=== PATIENT | male | born 1975 | race Caucasian/White ===

== ENCOUNTER 2020-02-13 10:17 | Outpatient (REF) | payer OTHER, SELFPAY ==
[2020-02-13 11:18] LABS: MANUAL DIFF FLAG NO
[2020-02-13 11:29] LABS: Basophils Percent Auto 0.3 % (0-2); Eosinophils Absolute Auto 0.1 X10*3/uL (0.0-0.4); Eosinophils Percent Auto 1.2 % (0-4); Hematocrit 46.1 % (42-52); Hemoglobin 15.3 g/dl (14.0-18.0); Imm Gran Abs Auto 0.02 X10*3/uL (0.00-0.03); Imm Gran Pct Auto 0.3 % (0.0-0.4); Lymphocytes Absolute Auto 1.7 X10*3/uL (1.2-4.9); Mean Corpuscular HGB Conc 33.2 g/dl (31.0-36.0); Mean Corpuscular Volume 84.4 fL (80-98); Mean Platelet Volume 11.3 fL (9.4-12.4); Monocytes Absolute Auto 0.5 X10*3/uL (0.1-1.2); Monocytes Percent Auto 7.4 % (2-11); Neutrophils Absolute Auto 4.3 X10*3/uL (2.0-8.3); Neutrophils Percent Auto 65.8 % (45-73); Platelet Count 232 X10*3/uL (160-400); Red Blood Count 5.46 X10*6/uL (4.60-5.80); Red Cell Distribution Width 12.1 % (11.0-16.0); White Blood Count 6.6 X10*3/uL (4.8-10.8)
[2020-02-13 12:12] LABS: Alanine Aminotransferase 29 U/L (0-40); Albumin Level 4.5 g/dL (3.5-5.0); Alkaline Phosphatase 79 U/L (39-117); Anion Gap 12 (12-20); Aspartate Amino Transferase 28 U/L (5-37); Bilirubin Total 0.8 mg/dL (0.0-1.0); Blood Urea Nitrogen 18 mg/dL (9-16); Calcium 9.4 mg/dL (8.4-10.2); Carbon Dioxide 29 mmol/L (22-29); Chloride 103 mmol/L (96-108); Cholesterol 210 mg/dL; Estimated Glomerular Filt Rate > 60; Glucose Fasting 98 mg/dL (60-99); HDL Cholesterol 57 mg/dL; LDL Cholesterol Calculated 140 mg/dl; Potassium 4.9 mmol/l (3.3-5.1); Sodium 139 mmol/L (135-145); Total Protein 8.1 g/dL (6.5-8.0); Triglycerides 69 mg/dL
== END 2020-02-13 10:18 | disposition home or self-care (01) ==
LOC: HO.HMGCLDS 10:17
PROVIDERS: PCP Internal Medicine; Visit Provider Internal Medicine
DX: E66.9 Obesity, unspecified (principal); Z00.01 Encounter for general adult medical examination with abnormal findings
CPT/HCPCS: 36415; 80053; 80061; 85025

== ENCOUNTER 2020-10-30 13:27 | Outpatient (REF) | payer OTHER, SELFPAY ==
[2020-11-01 15:12] LABS: TS Negative Control Passed; TS Panel A 0; TS Panel B 0; TS Positive Control Passed; TSpotTB Negative (Negative)
== END 2020-10-30 13:28 | disposition home or self-care (01) ==
LOC: HO.HMGCLDS 13:27
PROVIDERS: PCP Internal Medicine; Visit Provider Internal Medicine
DX: Z11.1 Encounter for screening for respiratory tuberculosis (principal)
CPT/HCPCS: 36415; 86481

== ENCOUNTER 2023-05-09 08:26 | Outpatient (AMB) | payer OTHER, SELFPAY ==
--- NOTE | 2023-05-09 08:29 | A.OFFPC_ITS ---
Vital Signs 05/09/23 08:34 Height 5 ft 11 in Weight 271 lb BMI 37.8 BP 110/70 Blood Pressure Location Lt brachial Position Sitting Pulse 58 Pulse Source Pulse Oximeter Pulse Oximetry (%) 96 Oxygen Delivery Method Room Air Intake Visit Reasons: Physical exam Intake Note: Pt is here today for his PE Allergies No Known Allergies Allergy (Verified 05/09/23 08:47) Medication List - Last Reconciled 05/09/23 by Yolanda Barragan MD albuterol sulfate 90 mcg/actuation (ProAir HFA) 1 inh inhalation QID PRN glucosamine HCl 1,500 mg PO DAILY multivitamin 1 tab PO DAILY omega 5-ojz-bgn-fish oil 300-1,000 mg (Fish Oil) 1 cap PO DAILY Tobacco use date assessed: 05/09/23 HPI Physical exam HPI Details 47-year-old male with history of obesity status post gastric bypass, has reactive airway disease, here today for his physical exam. Has history of dyslipidemia currently not on any medication, has been following a low- cholesterol diet, and goes to the gym for exercise. Overdue for his colon cancer screening. Patient also states that he enrolled in a [facility] in [place] to get semaglutide injections to help with weight loss. He started using it January 2023 for 8 week, and has lost about 20 lb . Patient currently off semaglutide now and has been trying to maintain a healthy diet and getting regular exercise. He declines getting any COVID booster or flu vaccine but would like to get an updated Tdap. Only complaint he has right now is difficulty initiating sleep during the week days, has no problems during the weekends. Has started taking [employer] Night Shred , which she got online and it has been helping him sleep better at night, does not wake up groggy or drowsy in the morning. He also has been noticing some decrease in libido and getting more tired than usual. He does work 2 jobs 1 thet starts at 04:30 to 14:30 and then from 3-9 p.m. [facility] Medical History (Updated 05/09/23 @ 09:10 by Yolanda Barragan MD) Hyperlipidemia History of COVID-19 Obesity (BMI 35.0-39.9 without comorbidity) History of appendicitis Tinea versicolor Reactive airway disease Surgical History History of appendectomy Gastric bypass status for obesity Family History Mother Diabetes mellitus HTN (hypertension) Depression Substance use disorder Mental health disorder Maternal Aunt Diabetes mellitus Maternal Uncle Diabetes mellitus Father Mental health disorder Social History Alcohol intake: current Alcohol intake frequency: holidays/special occasions only Patient Tobacco Use Status: Never used Tobacco e-Cigarette/Vaping Use: Never Used Questionnaire PHQ-9 Over the last 2 weeks, how often have you been bothered by any of the following problems? 1. Little interest or pleasure in doing things: not at all 2. Feeling down, depressed, or hopeless: not at all 3. Trouble falling or staying asleep, or sleeping too much: more than half the days 4. Feeling tired or having little energy: several days 5. Poor appetite or overeating: not at all 6. Feeling bad about yourself - or that you are a failure or have let yourself or your family down: not at all 7. Trouble concentrating on things, such as reading the newspaper or watching television: several days 8. Moving or speaking so slowly that other people could have noticed. Or the opposite - being so fidgety or restless that you have been moving around a lot more than usual: not at all 9. Thoughts that you would be better off or of hurting yourself in some way: not at all Total score: 4 Depression Screening Interpretation: Negative Depression Screening Done: Yes 06904 - PHQ-9 Billing: Yes Source: Developed by Drs. Yasir Fraser, Niya Murguia, Hiren Aly and colleagues, with an educational candida from [employer]. Thrive Questionnaire Date Thrive assessed: 05/09/23 I am a: Patient What is your living situation today?: I have a steady place to live Within the past 12 months, did the food you bought not last and you didn't have the money to get more?: Never true Within the past 12 months, did you worry whether your food would run out before you got money to buy more?: Never true Do you have trouble paying for medicines?: No Do you have trouble getting transportation to medical appointments?: No Do you have trouble paying your heating and electricity bill?: No Do you have trouble taking care of your child, family member or friend?: No Do you have trouble with day-to-day activities such as bathing, preparing meals, shopping, managing finances, etc.?: No Are you currently unemployed and looking for a job?: No Are you interested in more education?: No THRIVE Score: 0 AUDIT C Alcohol Use Questionnaire (AUDIT-C) 1. How often do you have a drink containing alcohol?: Monthly or less 2. How many drinks containing alcohol do you have on a typical day when you are drinking?: 1 or 2 3. How often do you have six or more drinks on one occasion?: Never Total Score: 1 JOSE-7 AMB Questionnaire JOSE-7 Date JOSE - 7 assessed: 05/09/23 Feeling nervous, anxious, or on edge: 1 = Several days Not being able to stop or control worryin = Not at all Worrying too much about different things: 0 = Not at all Trouble relaxin = More than half the days Being so restless that it is hard to sit still: 2 = More than half the days Becoming easily annoyed or irritable: 0 = Not at all Feeling afraid as if something awful might happen: 0 = Not at all Total JOSE-7 score (0-4 normal; 5-9 mild; 10-14 moderate; 15-21 severe): 5 Source: Developed by Drs. Yasir Fraser, Niya Murguia, Hiren Aly and colleagues, with an educational candida from [employer]. JOSE-7 Assessment Billing JOSE-7 Assessment Tool: JOSE-7 Assessment 19028 Review of Systems Const Reports as per HPI, Denies body aches, Reports fatigue, Denies fever(s), Denies headache(s), Reports snoring and Denies weakness Eyes Details: Overdue for his eye exam Reports blurry vision ENT Denies dizziness, Denies headache(s), Denies nasal congestion, Denies nasal discharge and Denies sore throat Card Denies chest pain, Denies lightheadedness, Denies palpitations, Denies dyspnea and Denies dyspnea on exertion Resp Denies chest congestion, Denies cough, Denies dyspnea, Denies dyspnea on exertion, Reports snoring and Reports wheezing (Occasional, uses albuterol as needed) GI Denies abdominal pain, Denies change in bowel habits and Denies heartburn Reports change in libido, Denies difficulty with ejaculations, Denies erectile dysfunction, Denies genital pain, Denies dysuria, Denies nocturia, Denies penile discharge, Denies scrotal swelling, Denies testicular mass, Denies testicular pain, Denies urinary frequency and Denies urinary urgency Musc Denies back pain, Denies myalgias and Denies joint swelling Skin/Breast Reports as per HPI Neuro Denies dizziness, Denies headache(s) and Denies weakness Psych Denies anxiety, Reports change in libido and Denies depression Endo Reports change in libido, Reports fatigue, Denies polydipsia, Denies polyuria and Denies palpitations Emir/Lymph Denies easy bruising Aller/Immun Denies seasonal rhinorrhea and Reports wheezing (Occasional, uses albuterol as needed) Physical exam (Primary Care) Vital Signs: Last Vital Signs Pulse 58 05/09/23 08:34 BP 110/70 05/09/23 08:34 Pulse Ox 96 05/09/23 08:34 Oxygen Delivery Method Room Air 05/09/23 08:34 BMI result Body Mass Index 37.8 Tobacco/Smoking Status: Tobacco use Status Tobacco use date assessed 05/09/23 05/09/23 08:30 Patient Tobacco Use Status Never used Tobacco 05/09/23 08:40 e-Cigarette/Vaping Use Never Used 05/09/23 08:40 PHQ-9: PHQ-9 Score PHQ-9: Total score 4 05/09/23 08:59 Depression Screening Interpretation: Negative Thrive Assessment: Date of Thrive Assessment Date Thrive assessed 05/09/23 05/09/23 08:47 Const General: no acute distress and alert Orientation/consciousness: patient oriented x3 HENMT Head: Yes normocephalic and Yes atraumatic Ears: external ears normal, TM's normal bilaterally and EAC's normal General nose exam: Normal external nose present and No nasal discharge present Face and sinus: Yes face symmetric Mouth: Normal oral and palatal mucosa present, oropharynx normal and moist mucous membranes Eyes General: appearance normal, both eyes and all related structures Eyelids: Yes eyelids normal Conjunctivae: conjunctivae normal Sclerae: sclerae normal Pupils: Equal, round and reactive pupils present EOM: EOMs intact bilaterally Neck Neck: Yes full ROM, Yes no lymphadenopathy and Yes supple Thyroid: Thyroid normal Chest Chest palpation & inspection: normal inspection of the chest Resp Effort & Inspection: normal respiratory effort and able to speak in complete sentences Auscultation: clear to auscultation bilaterally Cardio Rate: regular rate Rhythm: regular rhythm Heart sounds: S1 normal heart sound present and S2 normal heart sound present GI Palpation (GI): Soft to palpation, nontender, no guarding and no masses Auscultation: normal bowel sounds General: Yes no CVA tenderness Male General Exam: Yes normal external exam and No hernia Penis: normal penis and uncircumcised Testes: no testicular mass Back/Spine/Pelvis Back: no CVA tenderness and No back tenderness Skin General skin exam: no rashes or lesions noted Neuro General: patient oriented x3, gait normal, moves all extremities, Normal light touch and pain sensation, no focal motor deficits and CN's II-XI intact bilaterally Cranial nerves: Yes Equal, round and reactive pupils present Cognition (Neuro): normal cognition Gait exam (Neuro): Normal gait present Motor exam (neuro): 5/5 motor strength present throughout Extrem General: Yes normal to inspection, Yes full ROM, Yes no joint enlargement, Yes no pedal edema and Yes normal gait Psych Appearance: grossly normal and well kempt Mental Status: mental status grossly normal Speech and movement: Normal speech and movement present Affect: normal affect Attitude: cooperative Thought process: Normal thought process present Thought content: Normal thought content present Immunizations Boostrix Tdap 2.5 Lf unit-8 mcg-5 Lf/0.5 mL intramuscular syringe Performing Provider: Yolanda Barragan MD Performing Location: [facility] Administered by: Alexia Fernandez CMA on 05/09/23 09:19 Dose Route Admin Location Dispensed Lot Number Expiration Date NDC Web Site Specialist 0.5 mL IM Left Deltoid 0.5 mL [id number] 07/06/25 [id number] [employer] VIS Given Date VIS Provided VIS Publication Date 05/09/23 Single Vaccine 20 Eligibility Eligibility Date Funding Source Not [facility] Eligible 05/09/23 Private Assessment and Plan Assessment & Plan (1) Annual visit for general adult medical examination with abnormal findings: Code(s): Z00.01 - Encounter for general adult medical examination with abnormal findings Plan: Will check appropriate labs. Recommended dental visit every 6 months and regular eye exams, at least every 2 years patient states that he will schedule appointment with [facility]. Take adequate calcium in diet and vitamin-D 3 at 2000 IU per cap once a day, in addition to weight-bearing exercises to help maintain good muscle tone and weight control. Instructed to do self-testicular exam to check for any mass patient declined getting COVID booster or flu vaccine, Tdap given today. Will schedule him for a screening colonoscopy at [facility] with GI clean (2) Colon cancer screening: Code(s): Z12.11 - Encounter for screening for malignant neoplasm of colon Plan: Referred to [facility] for colon cancer screen (3) Reactive airway disease: Code(s): J45.909 - Unspecified asthma, uncomplicated Qualifiers: Asthma complication type: uncomplicated Asthma persistence: intermittent Asthma severity: mild Qualified Code(s): J45.20 - Mild intermittent asthma, uncomplicated Plan: Uses albuterol as needed for episodes of wheezing and bronchospasm (4) Obesity (BMI 35.0-39.9 without comorbidity): Code(s): E66.9 - Obesity, unspecified Plan: Has lost 20 lb using semaglutide injection for 8 weeks provided by [email or web address] in [place]. Recommended focusing on improving health instead of dieting. Continue with Mediterranean diet that in a healthy diet that helps, limit food high in fat, sugar, and calories. Eat slowly, pay attention to portion sizes, plan your meals ahead of time, continue going to the gym for regular physical activity, at least 150 minutes of moderate intensity exercise, or 90 minutes per week of vigorous exercise. Keeping a food diary, tracking what you eat and your physical activity can help assess what improvements you can make. There are many health problems associated with being overweight/obese, so it is important to improve your diet and exercise. (5) Fatigue: Code(s): R53.83 - Other fatigue Qualifiers: Fatigue type: chronic, unspecified Qualified Code(s): R53.82 - Chronic fatigue, unspecified Plan: Will check vitamin-D, B12 level, CBC and testosterone level (6) Loss of libido: Code(s): R68.82 - Decreased libido Plan: Will check testosterone level Orders: Orders Complete Blood Count Auto Diff Today E66.9 - Obesity, unspecified, J45.909 - Unspecified asthma, uncomplicated, R53.83 - Other fatigue, R68.82 - Decreased libido, Z00.01 - Encounter for general adult medical examination with abnormal findings Lipid Panel Today E66.9 - Obesity, unspecified, E78.5 - Hyperlipidemia, unspecified, J45.909 - Unspecified asthma, uncomplicated, R53.83 - Other fatigue, R68.82 - Decreased libido, Z00.01 - Encounter for general adult medical examination with abnormal findings Vitamin D 25-OH Total Today E66.9 - Obesity, unspecified, J45.909 - Unspecified asthma, uncomplicated, R53.83 - Other fatigue, R68.82 - Decreased libido, Z00.01 - Encounter for general adult medical examination with abnormal findings TDaP Immunization Today Z23 - Encounter for immunization Basic Metabolic Panel Fasting Today E66.9 - Obesity, unspecified, J45.909 - Unspecified asthma, uncomplicated, R53.83 - Other fatigue, R68.82 - Decreased libido, Z00.01 - Encounter for general adult medical examination with abnormal findings Alanine Aminotransferase Today E66.9 - Obesity, unspecified, J45.909 - Unspecified asthma, uncomplicated, R53.83 - Other fatigue, R68.82 - Decreased libido, Z00.01 - Encounter for general adult medical examination with abnormal findings Aspartate Amino Transferase Today E66.9 - Obesity, unspecified, J45.909 - Unspecified asthma, uncomplicated, R53.83 - Other fatigue, R68.82 - Decreased libido, Z00.01 - Encounter for general adult medical examination with abnormal findings Testosterone, Free/Total Today E66.9 - Obesity, unspecified, J45.909 - Unspecified asthma, uncomplicated, R53.83 - Other fatigue, R68.82 - Decreased libido, Z00.01 - Encounter for general adult medical examination with abnormal findings Vitamin B12 and Folate Today E66.9 - Obesity, unspecified, J45.909 - Unspecified asthma, uncomplicated, R53.83 - Other fatigue, R68.82 - Decreased libido, Z00.01 - Encounter for general adult medical examination with abnormal findings Referrals Gastroenterology Referral Z12.11 - Encounter for screening for malignant neoplasm of colon Coding Level of Care Code Est Pt Prev Care 40-64y(85145) Diagnoses Annual visit for general adult medical examination with abnormal findings Z00.01 Colon cancer screening Z12.11 Mild intermittent reactive airway disease without complication J45.20 Asthma complication type: uncomplicated Asthma persistence: intermittent Asthma severity: mild Obesity (BMI 35.0-39.9 without comorbidity) E66.9 Chronic fatigue R53.82 Fatigue type: chronic, unspecified Loss of libido R68.82 Additional Codes JOSE-7 Assessment Billing - JOSE-7 Assessment Tool: JOSE-7 Assessment 67397 ([id number])
[2023-05-09 08:34] VITALS: BP 110/70; PULSE 58; O2SAT 96; BMI 37.8
== END 2023-05-09 09:19 | disposition home or self-care (01) ==
PROVIDERS: PCP Internal Medicine; Visit Provider Internal Medicine
DX: Z00.00 Encounter for general adult medical examination without abnormal findings (principal); E66.9 Obesity, unspecified; Z68.37 Body mass index [BMI] 37.0-37.9, adult; Z23 Encounter for immunization; Z12.11 Encounter for screening for malignant neoplasm of colon; J45.20 Mild intermittent asthma, uncomplicated; R53.82 Chronic fatigue, unspecified; R68.82 Decreased libido
CPT/HCPCS: 90471; 90715; 99396

== ENCOUNTER 2023-05-13 07:16 | Outpatient (REF) | payer OTHER, SELFPAY ==
[2023-05-13 11:47] LABS: MANUAL DIFF FLAG NO
[2023-05-13 11:56] LABS: Basophils Percent Auto 0.6 % (0-2); Eosinophils Absolute Auto 0.2 X10*3/uL (0.0-0.4); Eosinophils Percent Auto 4.1 % (0-4); Hematocrit 43.5 % (42.0-52.0); Hemoglobin 14.5 g/dl (14.0-18.0); Imm Gran Abs Auto 0.02 X10*3/uL (0.00-0.03); Imm Gran Pct Auto 0.4 % (0.0-0.4); Lymphocytes Absolute Auto 1.5 X10*3/uL (1.2-4.9); Lymphocytes Percent Auto 29.5 % (20-40); Mean Corpuscular HGB Conc 33.3 g/dl (31.0-36.0); Mean Corpuscular Hemoglobin 27.9 pg (27.0-33.0); Mean Corpuscular Volume 83.8 fL (80.0-98.0); Mean Platelet Volume 11.6 fL (9.4-12.4); Monocytes Absolute Auto 0.4 X10*3/uL (0.1-1.2); Monocytes Percent Auto 6.9 % (2-11); Neutrophils Percent Auto 58.5 % (45-73); Platelet Count 215 X10*3/uL (160-400); Red Blood Count 5.19 X10*6/uL (4.60-5.80); Red Cell Distribution Width 12.6 % (11.0-16.0); White Blood Count 5.1 X10*3/uL (4.8-10.8)
[2023-05-13 12:32] LABS: Alanine Aminotransferase 27 U/L (0-40); Anion Gap 11 (12-20); Aspartate Amino Transferase 32 U/L (5-37); Blood Urea Nitrogen 17 mg/dL (9-16); Calcium 9.3 mg/dL (8.4-10.2); Carbon Dioxide 25 mmol/L (22-29); Chloride 107 mmol/L (96-108); Cholesterol 184 mg/dL (<200); Estimated Glomerular Filt Rate > 60; Glucose Fasting 89 mg/dL (60-99); HDL Cholesterol 49 mg/dL (>40); LDL Cholesterol Calculated 122 mg/dL (<100); Sodium 139 mmol/L (135-145); Triglycerides 66 mg/dL (<150)
[2023-05-13 12:36] LABS: Vitamin D 25-OH Total 34.5 ng/mL (>30)
[2023-05-13 12:49] LABS: Folate 9.8 ng/mL (> or = 4.0); Vitamin B12 1213 pg/mL (200-900)
[2023-05-18 15:38] LABS: Testosterone, Free 64.4 pg/mL (35.0-155.0); Testosterone, Total 354 ng/dL (250-1100)
== END 2023-05-13 07:17 | disposition home or self-care (01) ==
LOC: HO.HMGCLDS 07:16
PROVIDERS: PCP Internal Medicine; Visit Provider Internal Medicine
DX: Z00.01 Encounter for general adult medical examination with abnormal findings (principal); R53.83 Other fatigue; R68.82 Decreased libido; J45.909 Unspecified asthma, uncomplicated; E66.9 Obesity, unspecified; E78.5 Hyperlipidemia, unspecified
CPT/HCPCS: 36415; 80048; 80061; 82306; 82607; 82746; 84402; 84403; 84450; 84460; 85025

== ENCOUNTER 2023-07-11 12:53 | Outpatient (AMB) | payer OTHER, SELFPAY ==
[2023-07-11 12:55] VITALS: BP 116/63; PULSE 67; BMI 37.3
--- NOTE | 2023-07-11 12:55 | A.OFFVIS_ITS ---
Vital Signs 07/11/23 12:55 Height 5 ft 11 in Weight 267 lb 3.204 oz BMI 37.3 BP 116/63 Blood Pressure Location Rt brachial Position Sitting Pulse 67 Intake Visit Reasons: Colonoscopy Screening Intake Note: New patient in office today for colonoscopy screening. CC: Patient denies having any GI concerns or symptoms today. Contact Center Director Required: No Allergies No Known Allergies Allergy (Verified 07/11/23 12:58) HPI HPI Colonoscopy Screening: Details: 47 year old? male with past medical history of hyperlipidemia, obesity Monday, active airway disease is here today for pre colonoscopy screening.? Patient was sent to us by his PCP.? This is his first colonoscopy screening.? Patient denies any gastrointestinal symptoms in the past or at present.? Patient was on Ozempic for weight loss, however had to stop because was feeling nauseous. Currently not taking any medications for weight loss. Denies any personal or family history of gastrointestinal disease, colon polyps, or CRC.? Denies history of difficulty with sedation or anesthesia in the past.? Negative for history of sleep apnea.? Denies any history of cardiac, renal, pulmonary, or hepatic disease.?? No history of infectious? diseases like hepatitis A, B, C, HIV or tuberculosis.? Patient is not on any anticoagulation therapy. [facility] Medical History Hyperlipidemia History of COVID-19 Obesity (BMI 35.0-39.9 without comorbidity) History of appendicitis Tinea versicolor Reactive airway disease Surgical History History of appendectomy Gastric bypass status for obesity Family History Mother Diabetes mellitus HTN (hypertension) Depression Substance use disorder Mental health disorder Maternal Aunt Diabetes mellitus Maternal Uncle Diabetes mellitus Father Mental health disorder Social History Alcohol intake: current Alcohol intake frequency: holidays/special occasions only Patient Tobacco Use Status: Never used Tobacco e-Cigarette/Vaping Use: Never Used Review of Systems Const Denies weight gain and Denies weight loss ENT Reports no additional complaints, Denies dysphagia and Denies odynophagia Card Reports no additional complaints Resp Reports no additional complaints GI Denies abdominal pain, Denies belching, Denies melena, Denies bloating, Denies change in bowel habits, Denies dysphagia, Denies excessive flatus, Denies dys pepsia, Denies heartburn, Denies diarrhea, Denies loose stools, Denies nausea, Denies odynophagia and Denies vomiting Reports no additional complaints Musc Reports no additional complaints Neuro Reports no additional complaints Psych Reports no additional complaints Endo Reports no additional complaints Physical Exam Vital Signs: Last Vital Signs Pulse 67 07/11/23 12:55 BP 116/63 07/11/23 12:55 BMI result Body Mass Index 37.3 Const General: healthy appearing and no acute distress Nutritional Appearance: obese Orientation/consciousness: patient oriented x3 Resp Effort & Inspection: normal respiratory effort, able to speak in complete sentences, no tracheal deviation and symmetric chest movement Auscultation: clear to auscultation bilaterally Cardio Rate: regular rate GI Inspection: Yes normal to inspection, No distended and Yes obesity Palpation (GI): Soft to palpation, not firm, nontender and No hepatosplenomegaly present Auscultation: normal bowel sounds General: Yes no CVA tenderness Back/Spine/Pelvis Back: no CVA tenderness Skin General skin exam: elasticity normal, turgor normal and dry skin Neuro General: patient oriented x3 Psych Appearance: grossly normal Mental Status: mental status grossly normal Assessment & Plan Assessment & Plan (1) Colon cancer screening: Code(s): Z12.11 - Encounter for screening for malignant neoplasm of colon Plan Patient denies any GI, cardiac or respiratory symptoms. ?Denies any issues with anesthesia in the past.? Denies any history of sleep apnea.? No history infectious diseases in the past or present.? Not on any anticoagulation therapy.? No family or personal history of colon cancer or polyps.? Patient denies melena, hematochezia, unintentional weight loss or ribbon like stools.? Discussed at length the pre-procedure,? prep, diet & medications as well as what to expect prior, during and after the procedure.?? Stressed the importance of good bowel prep. ?Recommended the use of Vaseline or Calmoseptine OTC & baby wipes with bowel movements to promote comfort.? ?Patient verbalizes understanding and agrees to plan of care.? He was given the opportunity to ask questions and all questions answered.? We will see him after the procedure.? Medications: New polyethylene glycol 3350 (Miralax) As directed by gastroenterology department at [facility] 238 grams PO ONCE 238 grams 0RF Z12.11 - Encounter for screening for malignant neoplasm of colon bisacodyl (Dulcolax (bisacodyl)) take 4 tabs at noon the day before your colonoscopy 20 mg (4 x 5 mg) PO ONCE 1 day 4 tabs 0RF Z12.11 - Encounter for screening for malignant neoplasm of colon Coding Level of Care Code New Pt Level 3 (18074) Diagnoses Colon cancer screening Z12.11 Time Spent (min) 40 Comment 30 minutes spent with patient and additional 10 minutes spent reviewing his re cords
== END 2023-07-11 13:54 | disposition home or self-care (01) ==
PROVIDERS: PCP Internal Medicine; Visit Provider Nurse Practitioner Family
DX: Z12.11 Encounter for screening for malignant neoplasm of colon (principal); Z01.818 Encounter for other preprocedural examination
CPT/HCPCS: 99203

== ENCOUNTER → 2023-07-11 12:53 | Outpatient (BNVA) | payer OTHER, SELFPAY | PROVIDERS: PCP Internal Medicine; Visit Provider Nurse Practitioner Family ==

== ENCOUNTER 2023-12-22 08:50 | Day surgery (SDC) | payer OTHER, SELFPAY ==
[2023-12-20 11:15] VITALS: BMI 37.2
--- OUTSIDE RECORDS SUMMARY | 2023-12-22 08:53 | XMS_ITS ---
Author Organization [facility] Address [address] [place] [address] Care Team Providers Care Personnel Training Officer Name Role Phone PAOLA LAND Unavailable [phone] Encounters Encounter Location Date Provider Diagnosis [facility] [address] [address] 06/19/2023 PAOLA LAND PLAN OF TREATMENT No Information Progress Notes * Frantz GOMEZDOB:1975 (48 yo M)Acc No.[id number]:06/19/2023 Patient:??Frantz GOMEZ Provider:??PAOLA LAND NP :1975?Age:47 Y?Sex:Ma le Date:06/19/2023 Address:[address] [place], [place] [address] [id number] Subjective: * Chief Complaints: * ? * HPI: ?Constitutional:? Patient is here today for a weight management consultation visit ?Patient seen and examined. ? Full past medical history, social history, family history, ?allergies and current medications were reviewed and updated. ?Body composition analysis reviewed today, as expected increased BMI, ?visceral adiposity, fat mass index, waist cirumference ?Good skeletal mass composition, Good water composition ?Caloric energy expenditure discussed ?we discussed the importance of protein calorie nutrition, maintaning muscle mass, vit b12, biotin, iron ?while on GLP-1 medications, dual incretins, appetitite suppressants ?#Weight Management ?06/19/2023: Weight lbs, BMI: ?Patient referred to us from . ?Patient works as ?Highest weight: lbs ?Lowest weight: lbs ?Goal weight: lbs ?JAM screening/STOP-BANG/[place], * ?Metabolic workup:* ?Thyroid? No recent screening ?Diabetes? No recent screening ?Has not had an echocardiogram recently. ?Diet: ?Exercise: Currently steps daily. ?Non-smoker. ?ETOH use:. * ROS:?All Other Systems:?Review of Systems (ROS)??All others negative except those mentioned in HPI.? * Medical History:?? Objective: * Examination: ?General Examination: ?GENERAL APPEARANCE:??in no acute distress, well developed, well nourished.??HEAD:??normocephalic, atraumatic.??EYES:??pupils equal, round, reactive to light and accommodation.??EARS:??normal.??ORAL CAVITY:??mucosa moist.??THROAT:??clear.??NECK/THYROID:??neck supple, full range of motion, no cervical lymphadenopathy.??SKIN:??no suspicious lesions, warm and dry.??HEART:??no murmurs, regular rate and rhythm, S1, S2 normal.??LUNGS:??clear to auscultation bilaterally.??ABDOMEN:??normal, bowel sounds present, soft, nontender, nondistended.??EXTREMITIES:??no clubbing, cyanosis, or edema.??NEUROLOGIC:??nonfocal, motor strength normal upper and lower extremities, sensory exam intact.? Assessment: * Assessment: Total time spent today was 6 0 minutes of which greater than 50% was spent on coordinating and counseling Patient has been found to be obese with a BMI of (30). Patient has class (1) obesity. We are a board certified obesity and weight management practice Patient has trialed behavioral modification, dietary restrictions and exercise for a minimum of 6 months The most recent [place] [employer] of clinical endocrinologists and [place] [employer] guidelines recommend patients who have overweight BMI or obesity BMI, who also have metabolic syndrome, prediabetes, HLD, and other comorbidities or at risk of developing type 2 diabetes should aim for a weight loss goal of at least 10% of the baseline body weight Patient counseled regarding effects of GLP/GIP-1 agonists, and other FDA approved wgt loss meds with regards to a multifactorial approach of weight loss as mentioned above and not solely appetite suppression. We have discussed the mechanism of GLP-1's/GIP, dual incretins I think this would be fantastic option for her given her metabolic workup and body composition We have discussed the risks and benefits and side effects including/and not limited to Sarcopenia, intestinal obstruction, constipation, nausea, lethargy, headache Discussed importance of protein consumption for muscle maintenance as well as strength and resistance training ,probiotics, B12 complex biotin , iron and other nutrients, To help avoid telogen effluvium There is no history of medullary thyroid cancer or multiple endocrine neoplasia There is also no history of cardiovascular disease, hypertension, palpitations, or arrhythmias In the setting of potential stimulant/amphetamine use such as phentermine We have also discussed risks and benefits, and the use of compounded medications to help offset the national shortages as well as financial implications vs trade name drugs GLP must be discontinued upon initiation We have discussed the lifelong requirement of nutritional supplementation And adherence to an exercise regimen as well as importance We did discuss the neurohormonal changes that are occurring with these medications and Need for long-term Continued usage The patient understands and agrees Patient was reassured and welcomed to the practice. We discussed that we stress a hollistic medical approach with emphasis on lifestyle modification. Patient was informed that a healthy lifestyle with exercise and good eating habits can help reduce his risk of medical complications. He is explained that obesity increases his risk of diabetes, cardiovascular disease, or organ damage. We spent a lot of time discussing the relationship between food, exercise, sleep, mental health and obesity. Patient was counseled on the importance EATING local, organic food when possible. Patient was educated on clean 15 and dirty dozen. I provided information about reading books called The Food Rules by Olu Santiago and Eat Fat Get Lean by Dr Inocencio Haas. Self education is important in the journey for weight management. Patient was offered diagnostic testing. We want to measure visceral adiposity, advanced body composition, adverse lipids, fatty acid balance, risk for heart disease and atherosclerosis, markers of inflammation and genetic susceptibility. Patient was counseled on weight management and was advised to lose weight using A. Meal Replacement Products We discussed the lifelong requirement of nutritional supplementation and adherence to an exercise regimen as well as importance of dietary f/u Patient was educated on the replacement products called optifast. This is a good way of taking fixed amount of calories. It has been shown in studies to be ineffective weight management tool. We also recommend maintaining adequate protein intake and muscle composition, 1.5mg/kg This however has to be coupled with lifestyle intervention as well as laboratory data and EKG monitoring. It is impossible to know how a person will tolerate complete meal replacement. The side effects of meal replacement and weight loss could include syncopal attacks, dizziness, gallstones, potential cholecystectomy, possible heart attack and even . The benefits of meal replacement would be potential weight loss but no guarantees can be made. Meal replacement products are not covered by insurance. Once the patient has bought these products we cannot return them B. Lifestyle management which includes several strategies as below 1. Eat a low carbohydrate good fat good protein diet. Eliminate refined carbohydrates from the diet. Continue blood sugar and sugared beverages. Eat local organic when possible. Cook your own meals. Read food labels. None about healthy snacks. Portion control and food with low glycemic index 2. Exercise regularly. Try to get at least 6000 steps a day. Use a predominant to track activity level. Consider using apps like [employer], [employer], lose it, stick as needed for self-monitoring and weight management. Consider group exercises. Consider hiring a head athletic trainer/strength coach. Regular exercise is marin to sustainable health and prevents as a buffer against weight regain 3. Sleep is most important for healing. Tried to sleep at least 8 hours a night. A good quality sleep needs a sleep ritual with ideal room temperature of around 68. It might help to take a shower and have no electronics in the room and sleep in a very dark room without artificial light. Start her sleep routine and get up early in the morning and go to bed on time 4. Make a social connection. Surround yourself with positive people with positive energy. Connect with friends and family. 5. Get into the habit of meditating and mindfulness while doing everything. 6. Go outside and connect with nature. C. Prescription medications Patient was educated on the use of prescription medications for medical weight loss. This is a growing list and includes phentermine, Topamax,Qsymia, contrave, belviq and saxenda, wegovy All prescription medications could have side effects including but not limited to kidney stones, seizure disorder cardiac arrhythmias heart attack pancreatitis etc. etc.. Patient was encouraged to read the prescription insert and have coaching with their pharmacist and make an informed decision about taking medication and know that these medications are being prescribed with good intentions and we do not know how a patient would react to her medication. Sudden medications are FDA approved for weight loss and there is also off label use depending on patient's inability to afford medications in an attempt to lose weight D. Behavioral counseling was done to establish a relationship between food and an mood. Patient was provided information about local counseling and psychiatry and Dr Adam at [employer]. We would like to cover regular topics and build on low glycemic eating exercise mindful eating, using yoga and meditation along with deep breathing and connecting with friends and family. E. MASS PAT reviewed, Patient's current medications were reviewed and opinion was given on medication that can cause weight gain and can be substituted F. Patient was assessed for risk with obesity including and not limiting to atherosclerosis heart disease stroke kidney disease, restrictive lung disease, irritable bowel syndrome and overall mortality. Risk of developing prediabetes diabetes and metabolic syndrome was discussed G. Therapeutic plan: We have decided to make therapeutic plan which would include choosing wisely on calories restricting portion getting active, tracking weight, getting good quality sleep and working on time management H. Patient will follow up in (4) weeks for weight management Of note, some information is being carried forward from prior records for informational purposes only and is being cited so that efficiency, safety and quality of the patient's care is not compromised This note was prepared using voice recognition software and direct typing Please excuse inadvertent head kiln operator or typing errors, or uncorrected word substitutions Although every attempt has been made by the provider to proofread this document, occasional misspellings and typographical errors may still be present Due to the previous pandemic, and the use of personal protective equipment (PPE) This may decrease voice recognition accuracy Inadvertent head kiln operator errors may occur. Plan: * Treatment: * Procedure Codes:??32775 NO S HOW OFFICE VISIT * Images: Billing Information: * Visit Code:?? * Procedure Codes:?? 26921 NO SHOW OFFICE VISIT. * Sign off status: Pending * Provider:??PAOLA LAND NP Date:??10/2023 History and Physical Notes * Examination Category Sub-Category Detail Notes General Examination GENERAL APPEARANCE: in no ac [place] distress, well developed, well nourished HEAD: normocephalic, atrau matic EYES: pupils equal, round, reactive to light and accommodation EARS: normal THROAT: clear NECK/THYROID: neck supple, full ra nge of motion, no cervical lymphadenopathy HEART: no murmurs, regular rate and rhythm, S1, S2 normal LUNGS: clear to auscultatio n bilaterally ABDOMEN: normal, bowel sounds present, soft, nontender, nondistended NEUROLOGIC: nonfocal, motor stre ngth normal upper and lower extremities, sensory exam intact SKIN: no suspicious lesion s, warm and dry EXTREMITIES: no clubbing, cyanosi s, or edema ORAL CAVITY: mucosa moist
--- OUTSIDE RECORDS SUMMARY | 2023-12-22 08:53 | XMS_ITS ---
Author Organization [facility] Address [address] [place] [address] Care Team Providers Care Banking Teacher Name Role Phone PAOLA LAND Unavailable [phone] Encounters Encounter Location Date Provider Diagnosis [facility] 119 299 [facility] [address] [place] [address] 06/13/2023 PAOLA LAND PLAN OF TREATMENT No Information Progress Notes * Frantz GOMEZDOB:1975 (48 yo M)Acc No.[id number]:06/13/2023 Progress Notes Patient:??Frantz GOMEZ Provider:??PAOLA LAND NP :1975?Age:47 Y?Sex:Ma le Date:06/13/2023 Address:[address] [place], [place] [id number] Subjective: * Chief Complaints: * ? * HPI: ?Constitutional:? Patient is here today for a new patient visit and to establish care ?Full past medical history, social history, family history, ?allergies and current medications were reviewed and updated. ?New patient packet was reviewed which includes ? PHQ 9 scale for depression screening, social history, family history, ?medical history, surgical history ?They are coming to us from previous practice, ?Acute Concerns/Problem List: ?Social Hx ?Health Maintenance: ?COVID MRNA ?Flu 2022 ?TDAP ?Cscope. * ROS:?All Other Systems:?Review of Systems (ROS)??All [...] extremities, sensory exam intact.? Assessment: * Assessment: Patient seen and examined. C omprehensive discussion was done on the following. Patient was reassured and welcomed to the practice. We discussed that we stress a hollistic medical approach with emphasis on lifestyle modification. Patient was informed that a healthy lifestyle with exercise and good eating habits can help reduce his risk of medical complications. He is explained that obesity increases his risk of diabetes, cardiovascular disease, or organ damage. 1. Nutrition: It is important to follow a healthy diet based on lots of vegetables and legumes and good fat. Avoid processed food and processed carbohydrates. Learn to prepare your own meals. Learn to read labels and avoid high fructose corn syrup, processed chemicals added to increase shelf life and preprepared meals. Avoid fast foods. Learn to eat slowly and plan meals for a week. Try to count calories and be mindful off daily calorie intake. Get into the habit of keeping an eye on your weight by using an appropriate scale. Learn to log exercise and discussed fitness Apps like [employer] which can help keep log off calories taken versus calories burned. Local food should be preferred. Discussed Dirty Dozen Versus Clean Fifteen. Discussed healthy supplements like fish oil, Tumeric, Curcumin, Melatonin, Resveratrol, Probiotics, Vitamin-D, Alpha-Lipoic acid, Vitamin-D and coconut oil. 2. It is important to exercise regularly. Is a good habit to walk at least 30-45 minutes a day. Gentle weightlifting with standard precautions to protect the back. Finding activity like cycling or hiking and get into the habit of engaging in it. Stretching before and after the exercises important. It is also important to contact me if there are any problems like shortness of breath, chest pain, back pain and joint or muscle pain associated with the exercise. 3. Discussed age appropriate screening guidelines. Colonoscopy needs to start at age 45 with stool for occult blood as appropriate. There is a new test that can test for genetic abnormalities in the stool sample. This would not replace a colonoscopy but could be used as a screening tool for patients who do not want a colonoscopy. We discussed the importance of early detection of colon cancer. 4. Discussed current guidelines with respect to breast examination, mammogram and pap smear for early detection of breast and cervical cancer gender specific (if FEMALE) . Patient advised to follow up with these appointments, gender specific/age specific of course if applicbale 5. Discussed safe driving and no use of smart phone while driving 6. Age-appropriate immunizations were discussed. A tetanus booster is needed every 10 years. Flu vaccine is recommended every year just before the start of the flu season. Shingles vaccine is recommended after age 50 but not all insurances cover it. Pneumonia vaccine is given after age 65 unless there are certain comorbidities for which it is started earlier. Newly approved RSV vaccine was discussed COVID booster as well 7. Diagnostic labs were discussed. These could include CBC CMP and lipids with fasting blood glucose and insulin levels. Vitamin D and hemoglobin A1c testing might be appropriate PSA screening and false negatives. 8.. MOLST/HCP paperwork discussed, neurocognitive assesment if appropriate/warranted Of note, some information is being carried forward from prior records for informational purposes only and is being cited so that efficiency, safety and quality of the patient's care is not compromised This note was prepared using voice recognition software and direct typing Please excuse inadvertent swine extension field specialist or typing errors, or uncorrected word substitutions Although every attempt has been made by the provider to proofread this document, occasional misspellings and typographical errors may still be present Due to the previous pandemic, and the use of personal protective equipment (PPE) This may decrease voice recognition accuracy Inadvertent swine extension field specialist errors may occur. Plan: * Treatment: * Procedure Codes:??48356 NO S HOW OFFICE VISIT * Images: Billing Information: * Visit Code:?? * Procedure Codes:?? 75559 NO SHOW OFFICE VISIT. * Sign off status: Pending * Provider:??PAOLA LAND NP Date:??04/2023 History and Physical Notes * Examination Category Sub-Category Detail Notes General Examination GENERAL APPEARANCE: in no ac [place] distress, well developed, well nourished HEAD: normocephalic, [...]
--- OUTSIDE RECORDS SUMMARY | 2023-12-22 08:53 | XMS_ITS | Patient Health Record ---
Author Organization [facility] Address [address] [place] [address] Care Team Providers Care Supply Aide Name Role Phone ANDRÉSPAOLA BENNETT Unavailable [phone] REASON FOR REFERRAL No Information Encounters Encounter Location Date [facility] [address] [address] 06/13/[address] [facility] 119 299 [facility] [address] [place] [address] 06/19/2023 PAOLA LAND PLAN OF TREATMENT No Information Insurance Providers Payer Name Payer Address Payer Phone Subscriber Number Group Number Insured Name Patient Relationship to Insured Coverage Start Date Coverage End Date [facility] [address] [place] [address] [phone] [id number] Frantz Adan Self - patient is the insured
[2023-12-22 09:05] VITALS: BMI 35.6
[2023-12-22] MEDS: Lactated Ringers 1,000 ML 100 ML IVCONT (09:10)
[2023-12-22 09:17] VITALS: BP 116/66; PULSE 66; RESP 18; TEMP 36.6; O2SAT 99
--- NOTE | 2023-12-22 09:17 | MHC.SHP ---
Pre-Procedural Eval Section A - 24 Hr Update-Section A only Date of Service: 12/22/23 Section B - Complete if H&P > 30 days Chief Complaint: Encounter for screening for malignant neoplasm of Details of Present Illness: Hyperlipidemia History of COVID-19 Obesity (BMI 35.0-39.9 without comorbidity) History of appendicitis Tinea versicolor Reactive airway disease Surgical History (Reviewed 07/11/23 @ 12:58 by Greg Conrad [facility]) History of appendectomy Gastric bypass status for obesity Allergies: Allergies Allergy/AdvReac Type Severity Reaction Status Date / Time No Known Allergies Allergy Verified 07/11/23 12:58 Review of Systems Review of Systems Comment: Ten point ROS negative Exam Exam Comment: Gen appear: No acute distress HEENT: no icterus Chest: No overt resp distress Abd: soft, nontender, nondistended Psych: Stable affect, answering questions appropriately Neuro: A/Ox3 noted to move all extremities spontaneously Ext: no peripheral edema Plan Diagnosis/Plan: Unchanged I have reviewed the history and physical and performed a pertinent physical examination on my patient. No changes have occurred unless specified. Time Spent With Patient Time: Total time managing care of this patient today ____ minutes.
--- NOTE | 2023-12-22 10:15 | P.CONAN_ITS ---
Documented by User: Bety Skelton NP 12/21/23 10:33 HPI - Anesthesia Eval Consult details Narrative: 48yo M for Colonoscopy PMFSH Active Problems Active Problems: All Active Problems Hyperlipidemia (Acute) Obesity (BMI 35.0-39.9 without comorbidity) (Acute) Reactive airway disease (Acute) Past Medical History Medical History Hyperlipidemia Obesity (BMI 35.0-39.9 without comorbidity) Tinea versicolor Reactive airway disease Family History Family History Mother Diabetes mellitus HTN (hypertension) Depression Substance use disorder Mental health disorder Maternal Aunt Diabetes mellitus Maternal Uncle Diabetes mellitus Father Mental health disorder Surgical History Surgical History History of appendectomy Gastric bypass status for obesity Social History Social History Are you a primary primary care pediatrician to a significant other at home: No Do you presently have visiting nurse or other home services: No Alcohol intake: current Alcohol intake frequency: holidays/special occasions only Patient Tobacco Use Status: Never used Tobacco e-Cigarette/Vaping Use: Never Used Have you been hit, kicked, punched, or otherwise hurt by someone within the past year? If so, by whom?: No Are you DNR?: No Advance Directives: No Advance Directives Information Provided: Yes Recently lost weight without trying: No Nutrition Risks: No Nutritional Risk Meds Allergies Allergy/AdvReac Type Severity Reaction Status Date / Time No Known Allergies Allergy Verified 12/22/23 09:17 Home Medications ?Medication ?Instructions ?Recorded ?Confirmed ?Last Taken ?Type multivitamin 1 tab PO DAILY 02/13/20 12/20/23 Unknown History omega 0-seg-bwv-fish oil 300 1 cap PO DAILY 05/09/23 12/20/23 12/15/23 History mg-1,000 mg capsule (Fish Oil) albuterol sulfate 90 mcg/actuation 1 inh inhalation QID PRN Shortness 12/20/23 12/20/23 Unknown History aerosol inhaler (Ventolin HFA) Of Breath Or Wheezing Ozempic 12/22/23 12/08/23 History Exam Height,Weight and Vital Signs: Height 5 ft 11 in Weight 121.109 kg Assessment and Plan Assessment Anesthesia Assessment: Chart Reviewed Documented by User: Paola [place] DO 12/22/23 10:16 HPI - Anesthesia Eval Anesthesia Pre-Procedure Meds Is the patient on any of the following meds?: GLP1/DPP4 PMFSH Past Medical History Medical History Hyperlipidemia Obesity (BMI 35.0-39.9 without comorbidity) Tinea versicolor Reactive airway disease Family History Family History Mother Diabetes mellitus HTN (hypertension) Depression Substance use disorder Mental health disorder Maternal Aunt Diabetes mellitus Maternal Uncle Diabetes mellitus Father Mental health disorder Family history of problems with anesthesia: No Surgical History Surgical History History of appendectomy Gastric bypass status for obesity History of Problems with Anesthesia: No Social History Social History Are you a primary primary care pediatrician to a significant other at home: No Do you presently have visiting nurse or other home services: No Alcohol intake: current Alcohol intake frequency: holidays/special occasions only Patient Tobacco Use Status: Never used Tobacco e-Cigarette/Vaping Use: Never Used Have you been hit, kicked, punched, or otherwise hurt by someone within the past year? If so, by whom?: No Are you DNR?: No Advance Directives: No Advance Directives Information Provided: Yes Recently lost weight without trying: No Nutrition Risks: No Nutritional Risk Meds Allergies Allergy/AdvReac Type Severity Reaction Status Date / Time No Known Allergies Allergy Verified 12/22/23 09:17 Home Medications ?Medication ?Instructions ?Recorded ?Confirmed ?Last Taken ?Type multivitamin 1 tab PO DAILY 02/13/20 12/20/23 Unknown History omega 8-qhc-zqt-fish oil 300 1 cap PO DAILY 05/09/23 12/20/23 12/15/23 History mg-1,000 mg capsule (Fish Oil) albuterol sulfate 90 mcg/actuation 1 inh inhalation QID PRN Shortness 12/20/23 12/20/23 Unknown History aerosol inhaler (Ventolin HFA) Of Breath Or Wheezing Ozempic 12/22/23 12/08/23 History Exam Exam Date and Time: 12/22/23 1015 Height,Weight and Vital Signs: Height 5 ft 11 in Weight 121.109 kg Height 5 ft 11 in Weight 115.666 kg Vital Signs Temperature 97.9 F 12/22/23 09:17 Pulse Rate 66 12/22/23 09:17 Respiratory Rate 18 12/22/23 09:17 Blood Pressure 116/66 12/22/23 09:17 Pulse Oximetry 99 12/22/23 09:17 Oxygen Delivery Method Room Air 12/22/23 09:17 Temperature 97.9 F 12/22/23 09:17 Pulse Rate 66 12/22/23 09:17 Respiratory Rate 18 12/22/23 09:17 Blood Pressure 116/66 12/22/23 09:17 Pulse Oximetry 99 12/22/23 09:17 Oxygen Delivery Method Room Air 12/22/23 09:17 Airway Mallampati Class: II TM Dist: >3cm Neck ROM: Full Loose/Missing/Broken Teeth: No (patient denies any loose or broken teeth) Heart: S1S2 Lungs: CTAB Assessment and Plan Assessment Anesthesia Assessment: Anesthesia Plan Discussed and Chart Reviewed Final Anesthetic Review Family History of Problems with Anesthesia: No History of Problems with Anesthesia: No NPO: Yes ASA Class: II Final Preanesthetic Review: No Changes in Pt Med Stat, Meds/Allgs Chart Reviewed, Consent Obtained/Reviewed and Anes Risks/Benef Reviewed Patient Risk: Low Procedure Risk: Low Anesthetic Plan Anesthetic Plan: MAC: and Agree w/ Assess. and Plan Disposition: Standard PACU
--- NOTE | 2023-12-22 10:36 | P.OPN-COLO_ITS ---
Colonoscopy Operative Note Operative Note Date of Service: 12/22/23 Narrative: Procedure: Colonoscopy Indication: Screening Endoscopist: Vera Toscano MD Anesthesia Provider: Dr Paola [place] Anesthesia type: MAC Instrument: Olympus [id number]-H190L Consent: Indication, risks vs benefits, and alternatives were discussed with the patient who gave written informed consent to proceed. EKG, pulse, pulse oximetry and blood pressure were monitored throughout the procedure. Please see anesthesia flowsheet. Procedure: The patient was brought to the procedure room and placed in the left lateral decubitus position. IV medications were administered by the anesthesia provider in attendance. A digital rectal exam was performed which was normal. A distal attachment cap was affixed to the tip of the colonoscope which was then inserted through the anus and advanced through the colon to the cecum at 75 cm,and terminal ileum. Appendiceal orifice and ileocecal valve were identified. Mucosa was carefully examined under high definition white light as the instrument was slowly withdrawn in a retrograde panoramic fashion. Retroflexion was performed in rectum. The procedure was not difficult. There were no immediate obvious complications. The quality of the prep was BBPS: 2+3+2 = adequate Withdrawal time 7 minutes. Limitations: No limitations. Findings: Mucosa: Normal to cecum and terminal ileum. Protruding lesions: * 1 sessile polyp of size 2 mm in transverse colon. Cold snare polypectomy was performed. The polyp was completely removed and retrieved. * Medium internal hemorrhoids without stigmata of recent bleeding. Impression: 1. Normal colon and terminal ileum mucosa 2. Total of 1 polyp removed 3. Internal hemorrhoids Recommendations: - Follow path results. - Repeat colonoscopy in 7-10 years.
[2023-12-22 10:40] VITALS: BP 97/54; PULSE 69; RESP 14; TEMP 36.2; O2SAT 95
[2023-12-22 10:55] VITALS: BP 119/86; PULSE 74; RESP 16; TEMP 36.2; O2SAT 96
== END 2023-12-22 11:24 | disposition home or self-care (01) ==
PROVIDERS: PCP Internal Medicine; Visit Provider Internal Medicine
PROC: 0DJD8ZZ Inspection of Lower Intestinal Tract, Via Natural or Artificial Opening Endoscopic (ICD-10-PCS; CPT 45378; principal; 2023-12-22 11:30)
DX: Z12.11 Encounter for screening for malignant neoplasm of colon (principal); D12.3 Benign neoplasm of transverse colon; K64.8 Other hemorrhoids; E78.5 Hyperlipidemia, unspecified; Z79.899 Other long term (current) drug therapy
CPT/HCPCS: 45385; 88305; J2003; J2704

== ENCOUNTER → 2023-12-22 08:50 | Outpatient (BNV) | payer OTHER, SELFPAY | PROVIDERS: PCP Internal Medicine; Visit Provider Internal Medicine | DX: Z12.11 Encounter for screening for malignant neoplasm of colon (principal); D12.3 Benign neoplasm of transverse colon; K64.8 Other hemorrhoids; K63.89 Other specified diseases of intestine | CPT/HCPCS: 45385 ==

== ENCOUNTER 2024-01-01 12:05 | Outpatient (AMB) | payer OTHER, SELFPAY ==
--- OUTSIDE RECORDS SUMMARY | 2024-01-01 12:07 | XMS_ITS ---
Author Organization [employer] [facility] Address [address] [place] [address] Care Team Providers Care Media Associate Name Role Phone PAOLA LAND Unavailable [phone] Encounters Encounter Location Date Provider Diagnosis [facility] [address] [address] 06/19/2023 PAOLA LAND PLAN OF TREATMENT No Information Progress Notes * Frantz GOMEZDOB:1975 (48 yo M)Acc No.[id number]:06/19/2023 Patient:??Frantz GOMEZ Provider:??PAOLA LAND NP :1975?Age:47 Y?Sex:Ma le Date:06/19/2023 Address:[address] [place], [place] [address] [id number] Subjective: * Chief Complaints: * ? * [...] ?Lowest weight: lbs ?Goal weight: lbs ?JAM screening/STOP-BANG/[place], * ?Metabolic workup:* ?Thyroid? No recent screening [...] minimum of 6 months The most recent [place] Association of clinical endocrinologists and [place] College of endocrinology guidelines recommend patients who [...] track activity level. Consider using apps like Zedmo, myBotanoCappal, lose it, stick as needed for self-monitoring and weight management. Consider group exercises. Consider hiring a administrative personal assistant. Regular exercise is marin to sustainable health [...] counseling and psychiatry and Dr Adam at [facility]. We would like to cover regular topics [...] software and direct typing Please excuse inadvertent reefer truck driver or typing errors, or uncorrected word substitutions Although every attempt has been made by the provider to proofread this document, occasional misspellings and typographical errors may still be present Due to the previous pandemic, and the use of personal protective equipment (PPE) This may decrease voice recognition accuracy Inadvertent reefer truck driver errors may occur. Plan: * Treatment: * Procedure Codes:??05780 NO S HOW OFFICE VISIT * Images: Billing Information: * Visit Code:?? * Procedure Codes:?? 24479 NO SHOW OFFICE VISIT. * Sign off status: Pending * Provider:??PAOLA LAND NP Date:??10/2023 History and Physical Notes * Examination Category Sub-Category Detail Notes General Examination GENERAL APPEARANCE: in no ac [place] distress, well developed, well nourished HEAD: normocephalic, [...]
--- OUTSIDE RECORDS SUMMARY | 2024-01-01 12:07 | XMS_ITS ---
Author Organization [employer] [facility] Address [address] [place] [address] Care Team Providers Care Residential Supervisor Name Role Phone PAOLA LAND Unavailable [phone] Encounters Encounter Location Date Provider Diagnosis [facility] [address] [facility] [address] [place] [address] 06/13/2023 PAOLA LAND PLAN OF TREATMENT No Information Progress Notes * Frantz GOMEZDOB:1975 (48 yo M)Acc No.[id number]:06/13/2023 Progress Notes Patient:??Frantz GOMEZ Provider:??PAOLA LAND NP :1975?Age:47 Y?Sex:Ma le Date:06/13/2023 Address:[address] [place], [place] [id number] Subjective: * Chief Complaints: * ? * [...] log exercise and discussed fitness Apps like [employer] which can help keep log off calories [...] software and direct typing Please excuse inadvertent electrical worker or typing errors, or uncorrected word substitutions Although every attempt has been made by the provider to proofread this document, occasional misspellings and typographical errors may still be present Due to the previous pandemic, and the use of personal protective equipment (PPE) This may decrease voice recognition accuracy Inadvertent electrical worker errors may occur. Plan: * Treatment: * Procedure Codes:??78829 NO S HOW OFFICE VISIT * Images: Billing Information: * Visit Code:?? * Procedure Codes:?? 01185 NO SHOW OFFICE VISIT. * Sign off status: Pending * Provider:??PAOLA LAND NP Date:??04/2023 History and Physical Notes * Examination Category Sub-Category Detail Notes General Examination GENERAL APPEARANCE: in no ac [place] distress, well developed, well nourished HEAD: normocephalic, [...]
--- OUTSIDE RECORDS SUMMARY | 2024-01-01 12:07 | XMS_ITS | Patient Health Record ---
Author Organization [employer] [facility] Address [address] [place] [address] Care Team Providers Care Rehabilitation Services Director Name Role Phone ANDRÉSPAOLA BENNETT Unavailable [phone] REASON FOR REFERRAL No Information Encounters Encounter Location Date Provider Diagnosis [facility] [address] [address] 06/13/[address] [facility] 119 299 [facility] [address] [place] [address] 06/19/2023 PAOLA LAND PLAN OF TREATMENT No Information Insurance Providers Payer Name Payer Address Payer Phone Subscriber Number Group Number Insured Name Patient Relationship to Insured Coverage Start Date Coverage End Date [facility] [address] [place] [address] [id number] Frantz Adan Self - patient is the insured
--- NOTE | 2024-01-01 13:10 | AM.OFFWIN_ITS ---
Intake Vital Signs 01/01/24 13:12 Height 5 ft 11 in Weight 261 lb BMI 36.4 BP 130/80 Blood Pressure Location Rt brachial Position Sitting Pulse 76 Pulse Source Pulse Oximeter Pulse Oximetry (%) 98 Oxygen Delivery Method Room Air Intake Visit Reasons: EP Burning sensation due to cream applied Intake Note: Patient here because he has cuts/sores that started Monday, he states he was having sex with his and heard a rip/tear. Patient Tobacco Use Status: Never used Tobacco Allergies No Known Allergies Allergy (Verified 01/01/24 13:18) Do you need a note to return to daycare/school/sports/work: No HPI EP Burning sensation due to cream applied HPI Details This note is constructed using voice recognition software. While every effort has been made to ensure accuracy, bottling equipment sales representative errors may have been included. The patient is a 48 year old male who presents to the clinic today with burning sensation on his glans penis. He is an uncircumcised male, and reports that he was having intercourse with his on Monday when he felt a burning sensation. He later took a shower, and noticed that he had what appeared to be a friction burn. He applied several different creams over the course of the next 24 hours including Neosporin, and other wound healing measures, which seemed to make the burn worse. He later noticed that he had some white discharge in the glans penis near the area of the burn. He is sexually active, with his , no new partners. No other penile discharge. No fever, chills. No change in bowel or bladder function. [facility] Medical History Hyperlipidemia Obesity (BMI 35.0-39.9 without comorbidity) Tinea versicolor Reactive airway disease Surgical History History of appendectomy Gastric bypass status for obesity Family History Mother Diabetes mellitus HTN (hypertension) Depression Substance use disorder Mental health disorder Maternal Aunt Diabetes mellitus Maternal Uncle Diabetes mellitus Father Mental health disorder Social History Are you a primary medicare sales representative to a significant other at home: No Do you presently have visiting nurse or other home services: No Alcohol intake: current Alcohol intake frequency: holidays/special occasions only Patient Tobacco Use Status: Never used Tobacco e-Cigarette/Vaping Use: Never Used Review of Systems Const All systems reviewed & are unremarkable except as noted in HPI and below Physical Exam Vital Signs: Last Vital Signs Pulse 76 01/01/24 13:12 BP 130/80 01/01/24 13:12 Pulse Ox 98 01/01/24 13:12 Oxygen Delivery Method Room Air 01/01/24 13:12 BMI result Body Mass Index 36.4 Const General: cooperative, healthy appearing, comfortable, no acute distress and well developed Orientation/consciousness: patient oriented x3 Limitations: no limitations Resp Effort & Inspection: normal respiratory effort and able to speak in complete sentences Other: Inflammation to the glans penis, with obvious friction burn, and white discharge. Neuro General: patient oriented x3 Extrem General: Yes normal to inspection Assessment & Plan Assessment & Plan (1) Balanitis: Code(s): N48.1 - Balanitis Plan: Prescription for clotrimazole sent to requested pharmacy. Advised patient to keep the area clean and dry, with a dabbing motion for drying. He should avoid intercourse while he is treating this until symptoms have resolved. Plan See above for full details and plan. Medications: New clotrimazole 1% 1 appl topical BID 2 weeks 15 grams 0RF Coding Level of Care Code Est Pt Level 3 (81165) Diagnoses Balanitis N48.1
[2024-01-01 13:12] VITALS: BP 130/80; PULSE 76; O2SAT 98; BMI 36.4
== END 2024-01-01 14:04 | disposition home or self-care (01) ==
PROVIDERS: PCP Internal Medicine; Visit Provider Registered Nurse
DX: N48.1 Balanitis (principal)

== ENCOUNTER → 2024-01-01 12:05 | Outpatient (BNVA) | payer OTHER, SELFPAY | PROVIDERS: PCP Internal Medicine; Visit Provider Registered Nurse ==

== ENCOUNTER 2024-01-05 14:21 | Outpatient (AMB) | payer OTHER, SELFPAY ==
--- NOTE | 2024-01-05 14:38 | A.OFFVIS_ITS ---
Vital Signs 01/05/24 14:39 Height 5 ft 11 in Weight 268 lb 15.423 oz BMI 37.5 BP 114/60 Blood Pressure Location Rt brachial Position Sitting Pulse 76 Pulse Source Pulse Oximeter Pulse Oximetry (%) 96 Oxygen Delivery Method Room Air Intake Visit Reasons: S/P [place]; Dr. Grider Intake Note: Relevant Flags or Indicators ? Requires Maintenance Mechanic [employer]? N Frantz presents in office today for a scheduled s/p FUV. CC; Since last visit; labs ordered ? none. Rx ordered ? no. Diagnostics/images ordered ? none. Relevant GI Sx as reported per pt? None ? Hx of any recent surgeries? [place] w/ Dr. Toscano Maintenance Mechanic [employer] Required: No Allergies No Known Allergies Allergy (Verified 01/05/24 14:42) HPI HPI S/P [place]; Dr. Grider: Details: LAST VISIT Colon cancer screening Plan Patient denies any GI, cardiac or respiratory symptoms. ?Denies any issues with anesthesia in the past.? Denies any history of sleep apnea.? No history infectious diseases in the past or present.? Not on any anticoagulation therapy.? No family or personal history of colon cancer or polyps.? Patient denies melena, hematochezia, unintentional weight loss or ribbon like stools.? Discussed at length the pre-procedure,? prep, diet & medications as well as what to expect prior, during and after the procedure.?? Stressed the importance of good bowel prep. ?Recommended the use of Vaseline or Calmoseptine OTC & baby wipes with bowel movements to promote comfort.? ?Patient verbalizes understanding and agrees to plan of care.? He was given the opportunity to ask questions and all questions answered.? We will see him after the procedure.? Medications New polyethylene glycol 3350 (Miralax) As directed by gastroenterology department at [facility] 238 grams PO ONCE 238 grams 0RF Z12.11 bisacodyl (Dulcolax (bisacodyl)) take 4 tabs at noon the day before your colonoscopy 20 mg (4 x 5 mg) PO ONCE 1 day 4 tabs 0RF Z12.11 COLONOSCOPY Findings: Mucosa: Normal to cecum and terminal ileum. Protruding lesions: * 1 sessile polyp of size 2 mm in transverse colon. Cold snare polypectomy was performed. The polyp was completely removed and retrieved. * Medium internal hemorrhoids without stigmata of recent bleeding. Impression: 1. Normal colon and terminal ileum mucosa 2. Total of 1 polyp removed 3. Internal hemorrhoids Recommendations: - Follow path results. - Repeat colonoscopy in 7-10 years. PATHOLOGY RESULTS Diagnosis Colon, transverse, polypectomy: Tubular adenoma; negative for high-grade dysplasia or carcinoma TODAY'S VISIT Patient is here today for follow-up and to discuss colonoscopy results. Patient denies any ill effects from the prep, anesthesia or procedure itself. Patient reports that he has been feeling well since procedure except for being constipated which is not new. Patient denies melena, hematochezia, unintentional weight loss or ribbon like stools. Patient denies dyspepsia, dysphagia or odynophagia. Patient denies any GI concerning symptoms. One tubular adenoma 2 mm without high-grade dysplasia or carcinoma found in transverse colon. Colonoscopy recommendation was made for 7 year follow-up. Patient denies having any family history of CRC [facility] Medical History (Updated 01/05/24 @ 19:01 by Shelly Daugherty, [facility]) Tubular adenoma of colon Hyperlipidemia Obesity (BMI 35.0-39.9 without comorbidity) Tinea versicolor Reactive airway disease Surgical History History of appendectomy Gastric bypass status for obesity Family History Mother Diabetes mellitus HTN (hypertension) Depression Substance use disorder Mental health disorder Maternal Aunt Diabetes mellitus Maternal Uncle Diabetes mellitus Father Mental health disorder Social History Are you a primary career center advisor to a significant other at home: No Do you presently have visiting nurse or other home services: No Alcohol intake: current Alcohol intake frequency: holidays/special occasions only Patient Tobacco Use Status: Never used Tobacco e-Cigarette/Vaping Use: Never Used Review of Systems Const Denies weight gain and Denies weight loss ENT Reports no additional complaints, Denies dysphagia and Denies odynophagia Card Reports no additional complaints Resp Reports no additional complaints GI Denies abdominal pain, Denies belching, Denies melena, Denies bloating, Denies change in bowel habits, Reports constipation, Denies dysphagia, Denies excessive flatus, Denies dyspepsia, Denies heartburn, Denies diarrhea, Denies loose stools, Denies nausea, Denies odynophagia and Denies vomiting Reports no additional complaints Musc Reports no additional complaints Neuro Reports no additional complaints Psych Reports no additional complaints Endo Reports no additional complaints Physical Exam Vital Signs: Last Vital Signs Pulse 76 01/05/24 14:39 BP 114/60 01/05/24 14:39 Pulse Ox 96 01/05/24 14:39 Oxygen Delivery Method Room Air 01/05/24 14:39 BMI result Body Mass Index 37.5 Const General: healthy appearing and no acute distress Nutritional Appearance: obese Orientation/consciousness: patient oriented x3 Resp Effort & Inspection: normal respiratory effort, able to speak in complete sentences, no tracheal deviation and symmetric chest movement Auscultation: clear to auscultation bilaterally Cardio Rate: regular rate GI Inspection: Yes normal to inspection, No distended and Yes obesity Palpation (GI): Soft to palpation, not firm, nontender and No hepatosplenomegaly present Auscultation: normal bowel sounds General: Yes no CVA tenderness Back/Spine/Pelvis Back: no CVA tenderness Skin General skin exam: elasticity normal, turgor normal and dry skin Neuro General: patient oriented x3 Psych Appearance: grossly normal Mental Status: mental status grossly normal Assessment & Plan Assessment & Plan (1) Tubular adenoma of colon: Code(s): D12.6 - Benign neoplasm of colon, unspecified Category: Medical (2) Status post colonoscopy: Code(s): Z98.890 - Other specified postprocedural states (3) Constipation: Code(s): K59.00 - Constipation, unspecified Qualifiers: Constipation type: slow transit constipation Qualified Code(s): K59.01 - Slow transit constipation Plan Colonoscopy in 7 years, sooner if clinically necessary. Patient has no family history of CRC. Patient denies any melena, hematochezia, unintentional weight loss or ribbon like stools. Follow-up on as needed basis. May take Dulcolax tablets to help with bowel movements. Increase fluid intake and activity to promote better bowel motility. Patient will follow-up in our office on as needed basis. He will call if he will have any GI concerning symptoms. He is agreeable to this plan and verbalizes understanding of instructions. He was given the opportunity to ask questions and all questions answered. Thank you for allowing me to participate in his care Medications: New bisacodyl (Dulcolax (bisacodyl)) 10 mg (2 x 5 mg) PO BEDTIME 180 tabs 4RF Coding Level of Care Code Est Pt Level 3 (12203) Diagnoses Tubular adenoma of colon D12.6 Status post colonoscopy Z98.890 Slow transit constipation K59.01 Constipation type: slow transit constipation Time Spent (min) 25 Comment 15 minutes spent with patient and additional 10 minutes spent reviewing his records
[2024-01-05 14:39] VITALS: BP 114/60; PULSE 76; O2SAT 96; BMI 37.5
== END 2024-01-05 15:11 | disposition home or self-care (01) ==
PROVIDERS: PCP Internal Medicine; Visit Provider Nurse Practitioner Family
DX: D12.6 Benign neoplasm of colon, unspecified (principal); Z98.890 Other specified postprocedural states; K59.01 Slow transit constipation
CPT/HCPCS: 99213

== ENCOUNTER → 2024-01-05 14:21 | Outpatient (BNVA) | payer OTHER, SELFPAY | PROVIDERS: PCP Internal Medicine; Visit Provider Nurse Practitioner Family ==

== ENCOUNTER 2024-05-15 08:32 | Outpatient (AMB) | payer OTHER, SELFPAY ==
--- NOTE | 2024-05-15 09:00 | A.OFFPC_ITS ---
Vital Signs 05/15/24 09:06 Height 5 ft 11 in Weight 268 lb BMI 37.4 BP 110/72 Blood Pressure Location Lt brachial Position Sitting Respiration 16 Pulse 73 Pulse Source Pulse Oximeter Temp 98.0 F Temp Source Oral Pulse Oximetry (%) 97 Oxygen Delivery Method Room Air Intake Visit Reasons: Physical exam Allergies No Known Allergies Allergy (Verified 05/15/24 09:32) Medication List - Last Reconciled 05/15/24 by Yolanda Barragan MD albuterol sulfate 90 mcg/actuation (Ventolin HFA) 1 inh inhalation QID PRN ashwagandha extract mg PO bisacodyl (Dulcolax (bisacodyl)) 10 mg (2 x 5 mg) PO BEDTIME clotrimazole 1% 1 appl topical BID 2 weeks multivitamin 1 tab PO DAILY omega 4-ukd-wnn-fish oil 300-1,000 mg (Fish Oil) 1 cap PO DAILY vitamin D3-vitamin K2 1,250-200 mcg caps PO Tobacco use date assessed: 05/15/24 Dental Screening Dental Screen Date: 05/15/24 Did you have a dental visit in the last 12 months?: No Did you have a dental problem in the last 6 months where you did not have access to dental care?: No Was dental information given to patient?: Patient has dentist HPI Physical exam HPI Details 48 year old male with history of obesity s/p gastric bypass surgery, previously was on semaglutide a year ago and was able to lose weight, has dyslipidemia currently on [place] 3 fatty acid supplements and history of reactive airway disease, here today for his physical exam. He has plateaued on his weight loss, gained about 7 lb since 12/31/2023 despite adhering to healthy eating habits and getting regular exercise. He also has been complaining of feeling tired all the time, and complains of excessive daytime sleepiness.. He is up-to-date with his screening colonoscopy done in December [address] Toscano, with removal of a tubular adenoma polyp. Repeat colonoscopy due again in 5 years. [facility] Medical History (Updated 05/15/24 @ 09:47 by Yolanda Barragan MD) PND (post-nasal drip) Excessive daytime sleepiness Family history of thyroid disease in mother Fatigue Chronic fatigue Tubular adenoma of colon Hyperlipidemia Obesity (BMI 35.0-39.9 without comorbidity) Tinea versicolor Reactive airway disease Surgical History History of appendectomy Gastric bypass status for obesity Family History Mother Diabetes mellitus HTN (hypertension) Depression Substance use disorder Mental health disorder Maternal Aunt Diabetes mellitus Maternal Uncle Diabetes mellitus Father Mental health disorder Social History Housing: House Are you a primary neonatal intensive care unit nurse to a significant other at home: No Do you presently have visiting nurse or other home services: No Alcohol intake: current Alcohol intake frequency: holidays/special occasions only Patient Tobacco Use Status: Never used Tobacco e-Cigarette/Vaping Use: Never Used service: Yes Current occupational status: employed Cognitive needs: No Hearing needs: No Vision needs: No Questionnaire PHQ-9 Over the last 2 weeks, how often have you been bothered by any of the following problems? 1. Little interest or pleasure in doing things: not at all 2. Feeling down, depressed, or hopeless: not at all 3. Trouble falling or staying asleep, or sleeping too much: several days 4. Feeling tired or having little energy: several days 5. Poor appetite or overeating: several days 6. Feeling bad about yourself - or that you are a failure or have let yourself or your family down: not at all 7. Trouble concentrating on things, such as reading the newspaper or watching television: not at all 8. Moving or speaking so slowly that other people could have noticed. Or the opposite - being so fidgety or restless that you have been moving around a lot more than usual: not at all 9. Thoughts that you would be better off or of hurting yourself in some way: not at all Total score: 3 Depression Screening Interpretation: Negative Depression Screening Done: Yes 27495 - PHQ-9 Billing: Yes Source: Developed by Drs. Yasir Fraser, Niya Murguia, Hiren Aly and colleagues, with an educational candida from [employer]. Thrive Questionnaire Date Thrive assessed: 05/08/24 I am a: Patient What is your living situation today?: I have a steady place to live Within the past 12 months, did the food you bought not last and you didn't have the money to get more?: Never true Within the past 12 months, did you worry whether your food would run out before you got money to buy more?: Never true Do you have trouble paying for medicines?: No Do you have trouble getting transportation to medical appointments?: No Do you have trouble paying your heating and electricity bill?: No Do you have trouble taking care of your child, family member or friend?: No Do you have trouble with day-to-day activities such as bathing, preparing meals, shopping, managing finances, etc.?: No Are you currently unemployed and looking for a job?: Yes Are you interested in more education?: No Please select the resources that you would like help with: None Currently or been in a relationship where the following occur: No concerns reported THRIVE Score: 0 AUDIT C Alcohol Use Questionnaire (AUDIT-C) 1. How often do you have a drink containing alcohol?: Monthly or less 2. How many drinks containing alcohol do you have on a typical day when you are drinking?: 1 or 2 3. How often do you have six or more drinks on one occasion?: Never Total Score: 1 JOSE-7 AMB Questionnaire JOSE-7 Date JOSE - 7 assessed: 05/15/24 Feeling nervous, anxious, or on edge: 1 = Several days Not being able to stop or control worryin = Not at all Worrying too much about different things: 1 = Several days Trouble relaxin = More than half the days Being so restless that it is hard to sit still: 0 = Not at all Becoming easily annoyed or irritable: 0 = Not at all Feeling afraid as if something awful might happen: 0 = Not at all Total JOSE-7 score (0-4 normal; 5-9 mild; 10-14 moderate; 15-21 severe): 4 Source: Developed by Drs. Yasir Fraser, Niya Murguia, Hiren Aly and colleagues, with an educational candida from [employer]. JOSE-7 Assessment Billing JOSE-7 Assessment Tool: JOSE-7 Assessment 27073 Review of Systems Const Denies body aches, Denies fever(s), Denies headache(s) and Reports snoring Eyes Reports blurry vision ENT Denies dizziness, Denies headache(s), Denies nasal congestion, Denies nasal discharge and Denies sore throat Card Denies chest pain, Denies lightheadedness, Denies palpitations, Denies dyspnea and Denies dyspnea on exertion Resp Denies chest congestion, Denies cough, Denies dyspnea, Denies dyspnea on exertion, Reports snoring and Reports wheezing (Occasional, uses albuterol as needed) GI Denies abdominal pain, Denies change in bowel habits and Denies heartburn Reports change in libido, Denies difficulty with ejaculations, Denies erectile dysfunction, Denies genital pain, Denies dysuria, Denies nocturia, Denies penile discharge, Denies scrotal swelling, Denies testicular mass, Denies testicular pain, Denies urinary frequency and Denies urinary urgency Musc Denies back pain, Denies myalgias and Denies joint swelling Skin/Breast Reports as per HPI Neuro Denies dizziness and Denies headache(s) Psych Denies anxiety, Reports change in libido and Denies depression Endo Reports change in libido, Denies polydipsia, Denies polyuria and Denies palpitations Emir/Lymph Denies easy bruising Aller/Immun Denies seasonal rhinorrhea and Reports wheezing (Occasional, uses albuterol as needed) Physical exam (Primary Care) Vital Signs: Last Vital Signs Temp 98.0 F 05/15/24 09:06 Pulse 73 05/15/24 09:06 Resp 16 05/15/24 09:06 BP 110/72 05/15/24 09:06 Pulse Ox 97 05/15/24 09:06 Oxygen Delivery Method Room Air 05/15/24 09:06 BMI result Body Mass Index 37.4 Tobacco/Smoking Status: Tobacco use Status Tobacco use date assessed 05/15/24 05/15/24 09:05 Patient Tobacco Use Status Never used Tobacco 05/15/24 09:02 e-Cigarette/Vaping Use Never Used 05/15/24 09:02 PHQ-9: PHQ-9 Score PHQ-9: Total score 3 05/19/24 15:07 Depression Screening Interpretation: Negative Thrive Assessment: Date of Thrive Assessment Date Thrive assessed 05/08/24 05/15/24 09:02 Currently or been in a relationship where the following occur: No concerns reported Advance Care Planning discussion: Completed/Scanned Date of discussion: 05/15/24 Who was present: Patient Forms completed: Health Care Proxy Time spent: 16-45 minutes Actual minutes spent: 3 Const General: no acute distress and alert Orientation/consciousness: patient oriented x3 [facility] Head: Yes normocephalic and Yes atraumatic Ears: external ears normal, TM's normal bilaterally and EAC's normal General nose exam: Normal external nose present Face and sinus: Yes face symmetric Mouth: Normal oral and palatal mucosa present, oropharynx normal and moist mucous membranes Eyes General: appearance normal, both eyes and all related structures Eyelids: Yes eyelids normal Conjunctivae: conjunctivae normal Sclerae: sclerae normal Pupils: Equal, round and reactive pupils present EOM: EOMs intact bilaterally Neck Neck: Yes full ROM, Yes no lymphadenopathy and Yes supple Thyroid: Thyroid normal Chest Chest palpation & inspection: normal inspection of the chest Resp Effort & Inspection: normal respiratory effort and able to speak in complete sentences Auscultation: clear to auscultation bilaterally Cardio Rate: regular rate Rhythm: regular rhythm Heart sounds: S1 normal heart sound present and S2 normal heart sound present GI Palpation (GI): Soft to palpation, nontender, no guarding and no masses Auscultation: normal bowel sounds General: Yes no CVA tenderness Male General Exam: Yes normal external exam and No hernia Penis: normal penis and uncircumcised Testes: no testicular mass Back/Spine/Pelvis Back: no CVA tenderness and No back tenderness Skin General skin exam: no rashes or lesions noted Neuro General: patient oriented x3, gait normal, moves all extremities, Normal light touch and pain sensation, no focal motor deficits and CN's II-XI intact bilaterally Cranial nerves: Yes Equal, round and reactive pupils present Cognition (Neuro): normal cognition Gait exam (Neuro): Normal gait present Motor exam (neuro): 5/5 motor strength present throughout Extrem General: Yes normal to inspection, Yes full ROM, Yes no joint enlargement, Yes no pedal edema and Yes normal gait Psych Appearance: grossly normal and well kempt Mental Status: mental status grossly normal Speech and movement: Normal speech and movement present Affect: normal affect Attitude: cooperative Thought process: Normal thought process present Thought content: Normal thought content present Coding Level of Care Code Est Pt Prev Care 40-64y(42910) Diagnoses Annual visit for general adult medical examination with abnormal findings Z00.01 Chronic fatigue R53.82 Obesity (BMI 35.0-39.9 without comorbidity) E66.9 Hyperlipidemia E78.5 Tubular adenoma of colon D12.6 Family history of thyroid disease in mother Z83.49 Excessive daytime sleepiness G47.19 Advanced directives, counseling/discussion Z71.89 Additional Codes JOSE-7 Assessment Billing - JOSE-7 Assessment Tool: JOSE-7 Assessment 86303 ([id number]) PHQ-9 - 97325 - PHQ-9 Billing: Yes ([id number]) Vital Signs *Quality* - Advance Care Planning discussion: Completed/Scanned ([id number]) Vital Signs *Quality* - Time spent: 16-45 minutes ([id number]) Assessment & Plan Assessment & Plan (1) Annual visit for general adult medical examination with abnormal findings: Code(s): Z00.01 - Encounter for general adult medical examination with abnormal findings Plan: Fasting labs ordered today. Forced importance of following a healthy diet and getting regular exercise, weight loss still recommended. He is up-to-date with his screening colonoscopy done last year, due again for recheck in 5 years. He has had COVID vaccine but does not want to get any booster, up-to-date with Tdap, does not want to get flu vaccine (2) Chronic fatigue: Code(s): R53.82 - Chronic fatigue, unspecified Category: Medical Plan: CBC ordered as well as TSH with free T4, vitamin-D and vitamin B12 level and total testosterone (3) Obesity (BMI 35.0-39.9 without comorbidity): Code(s): E66.9 - Obesity, unspecified Category: Medical Plan: Discussed need to increase activity and weight reduction. Recommended focusing on improving health instead of dieting. Mediterranean diet is a healthy diet that helps, limit food high in fat, sugar, and calories. Eat slowly, pay attention to portion sizes, plan your meals ahead of time, start regular physical activity, at least 150 minutes of moderate intensity exercise, or 90 minutes per week of vigorous exercise. Keeping a food diary, tracking what you eat and your physical activity can help assess what improvements you can make. There are many health problems associated with being overweight/obese, so it is important to improve your diet and exercise. (4) Hyperlipidemia: Code(s): E78.5 - Hyperlipidemia, unspecified Category: Medical Plan: Fasting lipid panel ordered (5) Tubular adenoma of colon: Code(s): D12.6 - Benign neoplasm of colon, unspecified Category: Medical Plan: Repeat colonoscopy due again in 2028 (6) Family history of thyroid disease in mother: Code(s): Z83.49 - Family history of other endocrine, nutritional and metabolic diseases Category: Medical Plan: Will check TSH with free T4 (7) Excessive daytime sleepiness: Code(s): G47.19 - Other hypersomnia Category: Medical Plan: Referral to sleep Medicine ordered, to evaluate for possible sleep disordered (8) Advanced directives, counseling/discussion: Code(s): Z71.89 - Other specified counseling Plan: Initiated the conversation about Advanced Directives. Advanced Directives help patients prepare for current and future decisions about their medical treatment and place of care. Discussed with patient that it is a process where a patients current condition and prognosis are reviewed, their wishes for information regarding their illness are elicited, and likely medical dilemmas are presented and options discussed. Healthcare proxy form completed today. The form can be amended as needed, reviewed yearly and make changes as needed Orders: Orders Basic Metabolic Panel Fasting 05/15/24 D12.6 - Benign neoplasm of colon, unspecified, E66.9 - Obesity, unspecified, E78.5 - Hyperlipidemia, unspecified, R53.82 - Chronic fatigue, unspecified Lipid Panel 05/15/24 D12.6 - Benign neoplasm of colon, unspecified, E66.9 - Obesity, unspecified, E78.5 - Hyperlipidemia, unspecified, R53.82 - Chronic fatigue, unspecified Vitamin D 25-OH Total 05/15/24 D12.6 - Benign neoplasm of colon, unspecified, E66.9 - Obesity, unspecified, E78.5 - Hyperlipidemia, unspecified, R53.82 - Chronic fatigue, unspecified Vitamin B12 and Folate 05/15/24 D12.6 - Benign neoplasm of colon, unspecified, E66.9 - Obesity, unspecified, E78.5 - Hyperlipidemia, unspecified, R53.82 - Chronic fatigue, unspecified Complete Blood Count Auto Diff 05/15/24 D12.6 - Benign neoplasm of colon, unspecified, E66.9 - Obesity, unspecified, E78.5 - Hyperlipidemia, unspecified, R53.82 - Chronic fatigue, unspecified TSH reflex Free T4 05/15/24 R53.83 - Other fatigue, Z83.49 - Family history of other endocrine, nutritional and metabolic diseases Aspartate Amino Transferase 05/15/24 D12.6 - Benign neoplasm of colon, unspecified, E66.9 - Obesity, unspecified, E78.5 - Hyperlipidemia, unspecified, R53.82 - Chronic fatigue, unspecified Alanine Aminotransferase 05/15/24 D12.6 - Benign neoplasm of colon, unspecified, E66.9 - Obesity, unspecified, E78.5 - Hyperlipidemia, unspecified, R53.82 - Chronic fatigue, unspecified Testosterone, Free/Total 05/15/24 R53.83 - Other fatigue, R68.82 - Decreased libido Referrals Sleep Medicine Referral G47.19 - Other hypersomnia, R53.82 - Chronic fatigue, unspecified
[2024-05-15 09:06] VITALS: BP 110/72; PULSE 73; RESP 16; TEMP 36.7; O2SAT 97; BMI 37.4
--- OUTSIDE RECORDS SUMMARY | 2024-05-15 09:07 | XMS_ITS ---
Author Organization [facility] Address [address] [place] [id number] Care Team Providers Care Psychiatric Nurse Name Role Phone PAOLA LAND Unavailable [phone] Encounters Encounter Location Date Provider Diagnosis [facility] [address] [facility] [address] [place] [address] 06/13/2023 PAOLA LAND ASSESSMENTS Encounter Date Diagnosis Assessment Notes Treatment Notes Treatment Clinical Notes Section Notes 06/13/2023 Patient seen and examined. Comprehensive discussion was done on the following. Patient [...] log exercise and discussed fitness Apps like Domobpal which can help keep log off calories [...] 8.. MOLST/HCP paperwork discussed, neurocognitive assesment if appropriate/isac bright Of note, some information is being carried forward from prior records for informational purposes only and is being cited so that efficiency, safety and quality of the patient's care is not compromised This note was prepared using voice recognition software and direct typing Please excuse inadvertent customer service dispatcher or typing errors, or uncorrected word substitutions Although every attempt has been made by the provider to proofread this document, occasional misspellings and typographical errors may still be present Due to the previous pandemic, and the use of personal protective equipment (PPE) This may decrease voice recognition accuracy Inadvertent customer service dispatcher errors may occur PLAN OF TREATMENT No Information Progress Notes * Tamiko GOMEZ:1975 (48 yo M)Acc No.[id number]:06/13/2023 Progress Notes Patient:??Frantz GOMEZ Provider:??PAOLA LAND NP :1975?Age:47 Y?Sex:Pilo crooks Date:06/13/2023 [address] [place] Subjective: * Chief Complaints: * ? * [...] log exercise and discussed fitness Apps like [employer] which can help keep log off calories [...] software and direct typing Please excuse inadvertent customer service dispatcher or typing errors, or uncorrected word substitutions Although every attempt has been made by the provider to proofread this document, occasional misspellings and typographical errors may still be present Due to the previous pandemic, and the use of personal protective equipment (PPE) This may decrease voice recognition accuracy Inadvertent customer service dispatcher errors may occur. Plan: * Treatment: * Procedure Codes:??92031 NO S HOW OFFICE VISIT * Images: Billing Information: * Visit Code:?? * Procedure Codes:?? 83706 NO SHOW OFFICE VISIT. * Sign off status: Pending * Provider:??PAOLA LAND NP Date:??04/2023 History and Physical Notes * HPI (History of Present Illness) Category Sub-Category Detail Notes Category Not es Constitutional Patient is here today for a new patient visit and to establish care Full past medical history, social history, family history, allergies and current medications were reviewed and updated. New patient packet was reviewed which includes PHQ 9 scale for depression screening, social history, family history, medical history, surgical history They are coming to us from previous practice, Acute Concerns/Problem List: Social Hx Health Maintenance: COVID MRNA Flu 2022 TDAP Cscope Examination Category Sub-Category Detail Notes Category Not es General Examination GENERAL APPEARANCE: in no ac blanca distress, well developed, well nourished HEAD: normocephalic, [...]
--- OUTSIDE RECORDS SUMMARY | 2024-05-15 09:07 | XMS_ITS | Patient Health Record ---
Author Organization [facility] Address [address] [place] [id number] Care Team Providers Care Mica Paster Name Role Phone PAOLA LAND Unavailable [phone] REASON FOR REFERRAL No Information Encounters Encounter Location Date Provider Diagnosis [facility] [address] [address] 06/13/[address] [facility] [address] [address] 06/19/2023 PAOLA LAND ASSESSMENTS Encounter Date Diagnosis Assessment [...] log exercise and discussed fitness Apps like Sweet[employer] High which can help keep log off calories [...] 8.. MOLST/HCP paperwork discussed, neurocognitive assesment if appropriate/warrante d Of note, some information is being carried forward from prior records for informational purposes only and is being cited so that efficiency, safety and quality of the patient's care is not compromised This note was prepared using voice recognition software and direct typing Please excuse inadvertent project management consultant or typing errors, or uncorrected word substitutions Although every attempt has been made by the provider to proofread this document, occasional misspellings and typographical errors may still be present Due to the previous pandemic, and the use of personal protective equipment (PPE) This may decrease voice recognition accuracy Inadvertent project management consultant errors may occur 06/19/2023 Total time spent today was 60 minutes of which greater than 50% was spent on coordinating and counseling Patient has been found to be obese with a BMI of (30). Patient has class (1) obesity. We are a board certified obesity and weight management practice Patient has trialed behavioral modification, dietary restrictions and exercise for a minimum of 6 months The most recent [place] [employer] of clinical endocrinologists and [place] [employer] of endocrin[employer] guidelines recommend patients who [...] or arrhythmias In the setting of potential stimulant/amphetamin e use such as phentermine We have also [...] track activity level. Consider using apps like Sonico, myfitnesspal, lose it, stick as needed for self-monitoring and weight management. Consider group exercises. Consider hiring a epic trainer. Regular exercise is marin to sustainable health [...] counseling and psychiatry and Dr Adam at [facility]. We would like to cover regular topics [...] software and direct typing Please excuse inadvertent project management consultant or typing errors, or uncorrected word substitutions Although every attempt has been made by the provider to proofread this document, occasional misspellings and typographical errors may still be present Due to the previous pandemic, and the use of personal protective equipment (PPE) This may decrease voice recognition accuracy Inadvertent project management consultant errors may occur PLAN OF TREATMENT No Information Insurance Providers Payer Name Payer Address Payer Phone Subscriber Number Group Number Insured Name Patient Relationship to Insured Coverage Start Date Coverage End Date [facility] [address] [place] [address] [phone] [id number] Frantz Adan Self - patient is the insured
--- OUTSIDE RECORDS SUMMARY | 2024-05-15 09:07 | XMS_ITS ---
Author Organization [facility] Address [address] [place] [id number] Care Team Providers Care Sales And In Home Delivery Specialist Name Role Phone PAOLA LAND Unavailable [phone] Encounters Encounter Location Date Provider Diagnosis [facility] [address] [facility] [address] [place] [address] 06/19/2023 PAOLA LAND ASSESSMENTS Encounter Date Diagnosis Assessment Notes Treatment Notes Treatment Clinical Notes Section Notes 06/19/2023 Total time spent today was 60 [...] minimum of 6 months The most recent [place] [employer] of clinical endocrinologists and [place] [employer] of endocrinology guidelines recommend patients who [...] track activity level. Consider using apps like RelayFoods, HearToday.Orgpal, lose it, stick as needed for self-monitoring and weight management. Consider group exercises. Consider hiring a personal injury legal assistant. Regular exercise is marni to sustainable health and prevents as a [...] counseling and psychiatry and Dr Adam at [facility]. We would like to cover regular topics [...] software and direct typing Please excuse inadvertent licensed master social worker or typing errors, or uncorrected word substitutions Although every attempt has been made by the provider to proofread this document, occasional misspellings and typographical errors may still be present Due to the previous pandemic, and the use of personal protective equipment (PPE) This may decrease voice recognition accuracy Inadvertent licensed master social worker errors may occur PLAN OF TREATMENT No Information Progress Notes * Frantz GOMEZDOB:1975 (48 yo M)Acc No.[id number]:06/19/2023 Patient:??Frantz GOMEZ Provider:??PAOLA LAND NP :1975?Age:47 Y?Sex:Ma le Date:06/19/2023 Address:[address] [place], [place] [id number] Subjective: * Chief Complaints: * ? * [...] ?Lowest weight: lbs ?Goal weight: lbs ?JAM screening/[facility]/[place], * ?Metabolic workup:* ?Thyroid? No recent screening [...] minimum of 6 months The most recent [place] [employer] of clinical endocrinologists and [place] [employer] of endocrinology guidelines recommend patients who [...] track activity level. Consider using apps like RelayFoods, HearToday.Orgpal, lose it, stick as needed for self-monitoring and weight management. Consider group exercises. Consider hiring a personal injury legal assistant. Regular exercise is marin to sustainable [...] counseling and psychiatry and Dr Adam at [facility]. We would like to cover regular topics [...] software and direct typing Please excuse inadvertent licensed master social worker or typing errors, or uncorrected word substitutions Although every attempt has been made by the provider to proofread this document, occasional misspellings and typographical errors may still be present Due to the previous pandemic, and the use of personal protective equipment (PPE) This may decrease voice recognition accuracy Inadvertent licensed master social worker errors may occur. Plan: * Treatment: * Procedure Codes:??32197 NO S HOW OFFICE VISIT * Images: Billing Information: * Visit Code:?? * Procedure Codes:?? 88411 NO SHOW OFFICE VISIT. * Sign off status: Pending * Provider:??PAOLA LAND NP Date:??10/2023 History and Physical Notes * HPI (History of Present Illness) Category Sub-Category Detail Notes Category Not es Constitutional Patient is here today for a weight management consultation visit Patient seen and examined. Full past medical history, social history, family history, allergies and current medications were reviewed and updated. Body composition analysis reviewed today, as expected increased BMI, visceral adiposity, fat mass index, waist cirumference Good skeletal mass composition, Good water composition Caloric energy expenditure discussed we discussed the importance of protein calorie nutrition, maintaning muscle mass, vit b12, biotin, iron while on GLP-1 medications, dual incretins, appetitite suppressants #Weight Management 06/19/2023: Weight lbs, BMI: Patient referred to us from . Patient works as Highest weight: lbs Lowest weight: lbs Goal weight: lbs JAM screening/[facility]/[place], * Metabolic workup:* Thyroid? No recent screening Diabetes? No recent screening Has not had an echocardiogram recently. Diet: Exercise: Currently steps daily. Non-smoker. ETOH use: Examination Category Sub-Category Detail Notes Category Not es General Examination GENERAL APPEARANCE: in no ac [place] distress, well developed, well nourished HEAD: normocephalic, [...]
== END 2024-05-15 09:47 | disposition home or self-care (01) ==
PROVIDERS: PCP Internal Medicine; Visit Provider Internal Medicine
DX: Z00.00 Encounter for general adult medical examination without abnormal findings (principal); R53.82 Chronic fatigue, unspecified; E66.9 Obesity, unspecified; Z68.37 Body mass index [BMI] 37.0-37.9, adult; E78.5 Hyperlipidemia, unspecified; D12.6 Benign neoplasm of colon, unspecified; Z83.49 Family history of other endocrine, nutritional and metabolic diseases; G47.19 Other hypersomnia; Z71.89 Other specified counseling

== ENCOUNTER 2024-05-15 08:32 | Outpatient (REF) | payer OTHER, SELFPAY ==
[2024-05-15 13:31] LABS: Basophils Percent Auto 0.5 % (0-2); Eosinophils Absolute Auto 0.2 X10*3/uL (0.0-0.4); Eosinophils Percent Auto 2.7 % (0-4); Hematocrit 45.1 % (42.0-52.0); Hemoglobin 15.1 g/dl (14.0-18.0); Imm Gran Abs Auto 0.02 X10*3/uL (0.00-0.03); Imm Gran Pct Auto 0.3 % (0.0-0.4); Lymphocytes Absolute Auto 1.8 X10*3/uL (1.2-4.9); Lymphocytes Percent Auto 29.5 % (20-40); MANUAL DIFF FLAG NO; Mean Corpuscular HGB Conc 33.5 g/dl (31.0-36.0); Mean Corpuscular Hemoglobin 28.4 pg (27.0-33.0); Mean Corpuscular Volume 84.8 fL (80.0-98.0); Mean Platelet Volume 11.2 fL (9.4-12.4); Monocytes Absolute Auto 0.4 X10*3/uL (0.1-1.2); Monocytes Percent Auto 6.9 % (2-11); Neutrophils Absolute Auto 3.6 x10*3/uL (2.0-8.3); Neutrophils Percent Auto 60.1 % (45-73); Platelet Count 225 X10*3/uL (160-400); Red Blood Count 5.32 X10*6/uL (4.60-5.80); Red Cell Distribution Width 11.9 % (11.0-16.0); White Blood Count 5.9 X10*3/uL (4.8-10.8)
[2024-05-15 13:48] LABS: Alanine Aminotransferase 35 U/L (0-40); Anion Gap 11 (12-20); Aspartate Amino Transferase 45 U/L (5-37); Blood Urea Nitrogen 16 mg/dL (9-16); Calcium 9.6 mg/dL (8.4-10.2); Carbon Dioxide 27 mmol/L (22-29); Chloride 105 mmol/L (96-108); Cholesterol 206 mg/dL (<200); Estimated Glomerular Filt Rate > 60; Glucose Fasting 89 mg/dL (60-99); HDL Cholesterol 54 mg/dL (>40); LDL Cholesterol Calculated 134 mg/dL (<100); Potassium 4.5 mmol/L (3.3-5.1); Sodium 138 mmol/L (135-145); Triglycerides 90 mg/dL (<150)
[2024-05-15 14:36] LABS: TSH reflex Free T4 0.93 uIU/mL (0.32-4.0); Vitamin D 25-OH Total 34.1 ng/mL (>30)
[2024-05-15 14:48] LABS: Folate 13.6 ng/mL (> or = 4.0); Vitamin B12 397 pg/mL (200-900)
[2024-05-23 15:23] LABS: Testosterone, Free 72.2 pg/mL (35.0-155.0); Testosterone, Total 443 ng/dL (250-1100)
== END 2024-05-15 08:33 | disposition home or self-care (01) ==
LOC: HO.HMGCLDS 08:32
PROVIDERS: PCP Internal Medicine; Visit Provider Internal Medicine
DX: Z00.01 Encounter for general adult medical examination with abnormal findings (principal); R53.82 Chronic fatigue, unspecified; E66.9 Obesity, unspecified; E78.5 Hyperlipidemia, unspecified; D12.6 Benign neoplasm of colon, unspecified; G47.19 Other hypersomnia; R68.82 Decreased libido; Z83.49 Family history of other endocrine, nutritional and metabolic diseases; Z71.89 Other specified counseling
CPT/HCPCS: 36415; 80048; 80061; 82306; 82607; 82746; 84402; 84403; 84443; 84450; 84460; 85025; 96127

== ENCOUNTER 2024-06-03 14:06 | Outpatient (AMB) | payer OTHER, SELFPAY ==
[2024-06-03 14:25] VITALS: BP 116/76; PULSE 71; O2SAT 96; BMI 38.4
--- NOTE | 2024-06-03 14:25 | A.OFFVIS_ITS ---
Vital Signs 06/03/24 14:25 Height 5 ft 11 in Weight 275 lb BMI 38.4 BP 116/76 Blood Pressure Location Lt brachial Position Sitting Pulse 71 Pulse Source Pulse Oximeter Pulse Oximetry (%) 96 Oxygen Delivery Method Room Air Intake Visit Reasons: INP-Chronic Fatigue Intake Note: Patient presents [employer] sleep. He also has been complaining of feeling tired all the time, and complains of excessive daytime sleepiness. wakes up about 2-3 times a night and hard time getting back to bed. Allergies No Known Allergies Allergy (Verified 06/03/24 14:30) HPI Comments Details: 48 year r. handed old male referred to us for sleep apnea by PCP. He has had difficulty staying asleep, goes to bed at 7pm, falls asleep at 9:30pm, gets up at 3:45 am to work, zero bathroom breaks. He denies snoring, but g/f says he chokes and gasps for air all night. He feels very tired the next day, he averages 4 hours a night, he wakes up 2-3x a night and is unable to fall asleep. 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 He has a 41 year old foster child with disability. He denies morning headaches. He denies RLS, muscle spasms, cramps or uncomfortable sensations in his legs. He continues to have lower back pain and sees a chiropractor for adjustments as needed. He started taking, ashwaganda, exogenous testosterone due to fatigue. His memory, mood and diet are stable. He does not smoke nicotine, MJ, and alcohol use. [facility] Medical History PND (post-nasal drip) Excessive daytime sleepiness Family history of thyroid disease in mother Fatigue Chronic fatigue Tubular adenoma of colon Hyperlipidemia Obesity (BMI 35.0-39.9 without comorbidity) Tinea versicolor Reactive airway disease Surgical History History of appendectomy Gastric bypass status for obesity Family History Mother Diabetes mellitus HTN (hypertension) Depression Substance use disorder Mental health disorder Maternal Aunt Diabetes mellitus Maternal Uncle Diabetes mellitus Father Mental health disorder Social History Housing: House Are you a primary direct care supervisor to a significant other at home: No Do you presently have visiting nurse or other home services: No Alcohol intake: current Alcohol intake frequency: holidays/special occasions only Patient Tobacco Use Status: Never used Tobacco e-Cigarette/Vaping Use: Never Used service: Yes Current occupational status: employed Cognitive needs: No Hearing needs: No Vision needs: No Review of Systems Const All systems reviewed & are unremarkable except as noted in HPI and below Physical Exam Vital Signs: Last Vital Signs Pulse 71 06/03/24 14:25 BP 116/76 06/03/24 14:25 Pulse Ox 96 06/03/24 14:25 Oxygen Delivery Method Room Air 06/03/24 14:25 BMI result Body Mass Index 38.4 Const General: cooperative, comfortable and no acute distress Nutritional Appearance: obese (BMI is 38) Orientation/consciousness: patient oriented x3 HEENT Face and sinus: Yes normal facial exam and Yes face symmetric Teeth and gingiva: other ([place] score of 3) Eyes Pupils: Equal, round and reactive pupils present Neck Neck: Yes full ROM Resp Effort & Inspection: normal respiratory effort and able to speak in complete sentences Neuro General: patient oriented x3 and moves all extremities Cranial nerves: Yes CN's II-XII intact bilaterally, Yes Facial sensation intact/muscles of mastication intact, Yes Equal, round and reactive pupils present, Yes Normal accommodation reflex present, Yes Bilaterally intact EOM present, Yes Nystagmus not present, Yes Normal facial strength present, Yes Midline tongue present, Yes Ability to bilaterally rotate head present and Yes Ability to bilaterally elevate shoulders present Gait exam (Neuro): Normal gait present Motor exam (neuro): 5/5 motor strength present throughout and Normal motor muscle tone present throughout Deep tendon reflexes (DTR's): Right triceps reflex intensity grade: 2+, Left triceps reflex intensity grade: 2+, Rt Biceps (C5, C6): 2+, Left biceps reflex intensity grade: 2+, Right brachioradialis reflex intensity grade: 2+, Left brachioradialis reflex intensity grade: 2+, Right patellar reflex intensity grade: 2+ and Left patellar reflex intensity grade: 2+ Psych Thought process: Normal thought process present Thought content: Normal thought content present Results Reviewed Results Reviewed: 01/2024 Colonoscopy - Hemorrhoids and sessile polyps. Labs 05/2024 - Lipids are elevated. Assessment & Plan Assessment & Plan (1) Excessive daytime sleepiness: Code(s): G47.19 - Other hypersomnia Category: Medical (2) Chronic fatigue: Code(s): R53.82 - Chronic fatigue, unspecified Category: Medical (3) Reactive airway disease: Code(s): J45.909 - Unspecified asthma, uncomplicated Category: Medical Qualifiers: Asthma complication type: uncomplicated Asthma persistence: intermittent Asthma severity: mild Qualified Code(s): J45.20 - Mild intermittent asthma, uncomplicated Plan Labs to r/o fatigue Insomnia / Sleep disturbances HST Magnesium 400mg PO for sleep disturbances. Orders: Orders RT home sleep study Today G47.19 - Other hypersomnia Patient Instructions: Sleep Hygiene provided: set a scheduled bedtime and wake time to help regulate the circadian rhythm and balance the release of pituitary hormones. Sleep in a dark room, temperatures below 68 degrees, and no devices n bed. Limit caffeinated products 6 hours prior to bed, and limit fluids 2-4 hours prior to bed. Gentle night yoga, diffusing essential oils, and playing soft music can be relaxing. Labs to r/o causes for fatigue and sleep disturbances. HST to evaluate sleep apnea. Continue daily exercises in the gym. Coding Level of Care Code New Pt Level 4 (67933) Diagnoses Excessive daytime sleepiness G47.19 Chronic fatigue R53.82 Mild intermittent reactive airway disease without complication J45.20 Asthma complication type: uncomplicated Asthma persistence: intermittent Asthma severity: mild Sleep Questionnaire Difficulty falling asleep: No Difficulty staying asleep?: Yes Number of arousals: 0 Snoring: No Witnessed apneas: Yes Gasping arousals: Yes (Choking) Nocturia: No GERD: No Vivid dreams: No Acting out dreams: No Abnormal behavior in sleep: No Abnormal movements in sleep: No Morning headaches: No Excessive daytime sleepiness: Yes Daytime naps: Yes (20-30 min nap 3 months ago) Restless legs: No Hallucinations: No Sleep paralysis: No Drop attacks: No Sleep Study: No CPAP: No
== END 2024-06-03 15:17 | disposition home or self-care (01) ==
LOC: HO.HSMS 14:07
PROVIDERS: PCP Internal Medicine; Visit Provider Physician Assistant Medical
DX: G47.19 Other hypersomnia (principal); R53.82 Chronic fatigue, unspecified; J45.20 Mild intermittent asthma, uncomplicated
CPT/HCPCS: 99204

== ENCOUNTER → 2024-06-03 14:06 | Outpatient (BNVA) | payer OTHER, SELFPAY | PROVIDERS: PCP Internal Medicine; Visit Provider Physician Assistant Medical ==

== ENCOUNTER 2025-01-13 15:37 | Outpatient (AMB) | payer OTHER, SELFPAY ==
[2025-01-13 16:13] VITALS: BP 102/60; PULSE 64; RESP 15; TEMP 36.6; O2SAT 95; BMI 38.2
--- NOTE | 2025-01-13 16:13 | A.OFFPC_ITS ---
Vital Signs 01/13/25 16:13 Height 5 ft 11 in Weight 274 lb BMI 38.2 BP 102/60 Blood Pressure Location Lt brachial Position Sitting Respiration 15 Pulse 64 Pulse Source Pulse Oximeter Temp 97.9 F Temp Source Oral Pulse Oximetry (%) 95 Oxygen Delivery Method Room Air Intake Visit Reasons: ER [facility] Gastroenteritis Intake Note: Pt is here today for a f/u [facility] ER for gastroenteritis Allergies No Known Allergies Allergy (Verified 01/19/25 18:28) Medication List - Last Reconciled 01/19/25 by Yolanda Barragan MD albuterol sulfate 90 mcg/actuation (Ventolin HFA) 1 inh inhalation QID PRN bisacodyl (Dulcolax (bisacodyl)) 10 mg (2 x 5 mg) PO BEDTIME multivitamin 1 tab PO DAILY omeprazole 20 mg PO DAILY Tobacco use date assessed: 01/13/25 Dental Screening Dental Screen Date: 05/15/24 HPI ER [facility] Gastroenteritis HPI Details 49 Year old male with past medical histo ry significant for gastric sleeve bypass in 2017, history of partial small-bowel obstruction, history of appendectomy, who is here today for hospital follow-up. He initially presented at the emergency room in [facility] complaining of periumbilical and left lower quadrant pain which started 3 days prior to presentation and was progressively worsening. This was accompanied by nausea and dry heaves but no vomiting, no loose stools or constipation. No urinary symptoms no associated lightheadedness, chest pain or difficulty breathing. Labs obtained of the ER was unremarkable except for mild leukocytosis of 11.4, no electrolyte abnormality, elevated creatinine to suggest TERI, and lipids level was within normal limits . A CT of abdomen and pelvis showed sta tus post gastric sleeve surgery, mild gastric and small bowel wall thickening suggestive of gastroenteritis, no bowel obstruction no free air episodes or small fluid in the pelvis seen. Prescription was sent for famotidine and discharged home with improvement noted. Patient does report some improvement in his symptoms, but still has some lingering heartburn episodes. [facility] Medical History PND (post-nasal drip) Excessive daytime sleepiness Family history of thyroid disease in mother Fatigue Chronic fatigue Tubular adenoma of colon Hyperlipidemia Obesity (BMI 35.0-39.9 without comorbidity) Tinea versicolor Reactive airway disease Surgical History History of appendectomy Gastric bypass status for obesity Family History Mother Diabetes mellitus HTN (hypertension) Depression Substance use disorder Mental health disorder Maternal Aunt Diabetes mellitus Maternal Uncle Diabetes mellitus Father Mental health disorder Social History Housing: House Are you a primary acute care registered nurse to a significant other at home: No Do you presently have visiting nurse or other home services: No Alcohol intake: current Alcohol intake frequency: holidays/special occasions only Patient Tobacco Use Status: Never used Tobacco e-Cigarette/Vaping Use: Never Used service: Yes Current occupational status: employed Cognitive needs: No Hearing needs: No Vision needs: No Questionnaire PHQ-9 Over the last 2 weeks, how often have you been bothered by any of the following problems? Depression Screening Interpretation: Negative Depression Screening Done: Yes Source: Developed by Drs. Yasir Fraser, Niya Murguia, Hiren Aly and colleagues, with an educational candida from [employer]. Thrive Questionnaire Date Thrive assessed: 05/08/24 I am a: Patient What is your living situation today?: I have a steady place to live Within the past 12 months, did the food you bought not last and you didn't have the money to get more?: Never true Within the past 12 months, did you worry whether your food would run out before you got money to buy more?: Never true Do you have trouble paying for medicines?: No Do you have trouble getting transportation to medical appointments?: No Do you have trouble paying your heating and electricity bill?: No Do you have trouble taking care of your child, family member or friend?: No Do you have trouble with day-to-day activities such as bathing, preparing meals, shopping, managing finances, etc.?: No Are you currently unemployed and looking for a job?: Yes Are you interested in more education?: No Please select the resources that you would like help with: None Currently or been in a relationship where the following occur: No concerns reported THRIVE Score: 0 JOSE-7 AMB Questionnaire JOSE-7 Date JOSE - 7 assessed: 05/15/24 Source: Developed by Drs. Yasir Fraser, Niya Murguia, Hiren Aly and colleagues, with an educational candida from [employer]. Review of Systems Const All systems reviewed & are unremarkable except as noted in HPI and below Physical exam (Primary Care) Vital Signs: Last Vital Signs Temp 97.9 F 01/13/25 16:13 Pulse 64 01/13/25 16:13 Resp 15 01/13/25 16:13 BP 102/60 01/13/25 16:13 Pulse Ox 95 01/13/25 16:13 Oxygen Delivery Method Room Air 01/13/25 16:13 BMI result Body Mass Index 38.2 Tobacco/Smoking Status: Tobacco use Status Tobacco use date assessed 01/13/25 01/13/25 16:21 Patient Tobacco Use Status Never used Tobacco 01/13/25 16:21 e-Cigarette/Vaping Use Never Used 01/13/25 16:21 Depression Screening Interpretation: Negative Thrive Assessment: Date of Thrive Assessment Date Thrive assessed 05/08/24 01/13/25 16:21 Currently or been in a relationship where the following occur: No concerns reported Advance Care Planning discussion: Completed/Scanned Date of discussion: 05/15/24 Who was present: Patient Forms completed: Health Care Proxy Time spent: 16-45 minutes Actual minutes spent: 3 Const General: no acute distress and alert HENMT Head: Yes normocephalic Face and sinus: Yes face symmetric Mouth: Normal oral and palatal mucosa present and moist mucous membranes Neck Neck: Yes full ROM, Yes no lymphadenopathy and Yes supple Thyroid: Thyroid normal Resp Effort & Inspection: normal respiratory effort and able to speak in complete sentences Auscultation: clear to auscultation bilaterally Cardio Rate: regular rate Rhythm: regular rhythm Heart sounds: S1 normal heart sound present and S2 normal heart sound present GI Palpation (GI): Soft to palpation, nontender, no guarding and no masses Auscultation: normal bowel sounds Skin General skin exam: no rashes or lesions noted Extrem General: Yes normal to inspection, Yes full ROM, Yes no joint enlargement, Yes no pedal edema and Yes normal gait Coding Level of Care Code Est Pt Level 4 (05368) Diagnoses Heartburn symptom R12 Additional Codes Vital Signs *Quality* - Advance Care Planning discussion: Completed/Scanned ([id number]) Vital Signs *Quality* - Time spent: 16-45 minutes ([id number]) Assessment & Plan Assessment & Plan (1) Heartburn symptom: Code(s): R12 - Heartburn Plan: Prescription sent for omeprazole 20 mg per capsule to take once a day. Avoidance of triggers for heartburn. Advised to follow-up if any worsening pain occurs , especially if accompanied by fever, nausea, vomiting alteration in bowel habits. Medications: New omeprazole 20 mg PO DAILY 30 caps 0RF
--- OUTSIDE RECORDS SUMMARY | 2025-01-13 16:49 | XMS_ITS | Patient Health Record ---
Author Organization [facility] Address [address] [place] [address] Care Team Providers Care Quality Management Nurse Name Role Phone PAOLA LAND Unavailable [phone] Reason For Referral No Information Plan Of Treatment No Information Insurance Providers Payer Name Payer Address Payer Phone Subscriber Number Group Number Insured Name Patient Relationship to Insured Coverage Start Date Coverage End Date [facility] [address] [facility] [id number] Frantz Adan Self - patient is the insured
== END 2025-01-13 16:46 | disposition home or self-care (01) ==
LOC: HO.HMCC 15:37
PROVIDERS: PCP Internal Medicine; Visit Provider Internal Medicine
DX: R12 Heartburn (principal); Z00.00 Encounter for general adult medical examination without abnormal findings